=== PATIENT | male | born 1935 | race Caucasian/White ===

== ENCOUNTER 2019-02-15 03:13 | Inpatient (IN) | payer MEDICARE, MEDICAID ==
[~2019-02-15] VITALS: Ht 167.6 cm; Wt 75.3 kg
[2019-02-15] VITALS (59 sets, daily range): BP systolic 81–135; BP diastolic 44–83
[2019-02-15] MEDS ORDERED: LEVOFLOXACIN 750MG PREMIX 150 ML IV ONE (03:45)
[2019-02-15] MEDS ORDERED: SODIUM CHLORIDE 0.9% 1000ML BAG (SEPSIS BOLUS) IV ONE (03:45)
[2019-02-15 04:07] LABS: CHLORIDE 105 mEq/L (98-107)
[2019-02-15 04:08] LABS: BASOPHILS % 0.5 % (0.0-2.0); EOSINOPHILS % 0.2 % (0.0-5.0); HEMATOCRIT. 36.3 % (42.0-52.0); HEMOGLOBIN. 12.2 g/dL (14.0-18.0); LYMPHOCYTES % 9.6 % (20.0-50.0); MEAN CORPUSCULAR VOLUME 92.5 fL (80.0-94.0); MEAN PLATELET VOLUME 10.5 fl (7.4-10.4); MONOCYTES % 7.8 % (2.0-8.0); NEUTROPHILS % 81.9 % (40.0-76.0); PLATELET 86 x1000/uL (130-400); RED BLOOD CELL COUNT 3.93 mill/uL (4.7-6.1); RED CELL DISTRIBUTION WIDTH 18.2 % (11.6-14.6)
[2019-02-15 04:11] LABS: INR 1.2; PROTHROMBIN TIME 12.4 sec (9.6-11.0)
[2019-02-15] MEDS ORDERED: DEXTROSE 50% WATER 50ML SYRINGE IV ONE ×2 (06:28→06:30)
[2019-02-15] MEDS ORDERED: IOHEXOL-350 100 ML BOTTLE ONE (07:26)
[2019-02-15] MEDS ORDERED: IPRATROPIUM/ALBUTEROL 0.5-3(2.5)MG/3ML NEB HHN PRN (08:00)
[2019-02-15] MEDS ORDERED: ACETAMINOPHEN 325MG TABLET PO PRN (08:00)
[2019-02-15] MEDS ORDERED: AZITHROMYCIN 500 MG in DEXT 5% WATER 250 ML IV SCH (08:00)
[2019-02-15] MEDS ORDERED: NITROGLYCERIN 0.4MG TABLET SL SL PRN (08:00)
[2019-02-15] MEDS ORDERED: DEXTROSE 50% WATER 50ML SYRINGE IV PRN (08:00)
[2019-02-15] MEDS ORDERED: CLONIDINE 0.1MG TABLET PO PRN (08:00)
[2019-02-15] MEDS ORDERED: MAGNESIUM/ALUMINUM HYDROXIDE/SIMETHICONE 30ML UDC PO PRN (08:00)
[2019-02-15] MEDS: INSULIN LISPRO 100 UNITS/ML SUBCUT SCH ×5 (08:20→20:47)
[2019-02-15 08:26] LABS: CLARITY URINE CLEAR (CLEAR); COLOR URINE YELLOW (YELLOW); KETONES URINE NEGATIVE (NEGATIVE); LEUKOCYTE ESTERASE URINE NEGATIVE (NEGATIVE); NITRITE URINE NEGATIVE (NEGATIVE); OCCULT BLOOD URINE NEGATIVE (NEGATIVE); PH URINE 7.5 (4.5-8.0); PROTEIN URINE NEGATIVE (NEGATIVE); SPECIFIC GRAVITY URINE 1.019 (1.005-1.030)
[2019-02-15] MEDS ORDERED: CEFTRIAXONE 1 G PREMIX 50 ML IV SCH (09:00)
[2019-02-15] MEDS ORDERED: BLOOD SUGAR DIAGNOSTIC STRIP TEST SCH (09:00)
[2019-02-15] MEDS ORDERED: LIDOCAINE HCL 1% 20ML VIAL (Pyxis) INJ ONE (09:51)
[2019-02-15] MEDS ORDERED: MEMA28CA MT (09:56)
[2019-02-15] MEDS ORDERED: ISON300T19 MT (09:56)
[2019-02-15] MEDS ORDERED: PREG150C MT (09:56)
[2019-02-15] MEDS ORDERED: OXYB5TAB11 MT (09:56)
[2019-02-15] MEDS ORDERED: METF-416 MT (09:56)
[2019-02-15] MEDS ORDERED: ATRO10DR OP (09:56)
[2019-02-15] MEDS ORDERED: ATOR20TA65 PO (09:56)
[2019-02-15] MEDS ORDERED: OSELTAMIVIR 75MG CAPSULE PO SCH (10:15)
[2019-02-15] MEDS ORDERED: NOREPINEPHRINE 4 MG in DEXT 5% WATER 246 ML IV PRN (10:15)
[2019-02-15] MEDS ORDERED: OSELTAMIVIR 30MG CAPSULE PO SCH (10:26)
[2019-02-15] MEDS: GUAIFENESIN 200MG/10ML SUGAR FREE UDC PO PRN ×2 (10:57→20:41)
[2019-02-15] MEDS: GUAIFENESIN/DM 600MG/30MG ER TAB 12HR PO SCH ×2 (10:57→20:41)
[2019-02-15] MEDS: FAMOTIDINE 20MG TABLET PO SCH ×2 (10:57→20:41)
[2019-02-15] MEDS: ASCORBIC ACID 500 MG TABLET PO SCH ×2 (10:57→20:41)
[2019-02-15] MEDS: ENOXAPARIN 40MG/0.4ML SYR SUBCUT SCH (10:58)
[2019-02-15] MEDS ORDERED: OSELTAMIVIR 30MG CAPSULE PO NR (11:15)
[2019-02-15] MEDS: ZINC SULFATE 220 MG ( 50 ) CAPSULE PO SCH (12:01)
[2019-02-15] MEDS: AZITHROMYCIN 500 MG in DEXT 5% WATER 250 ML IV SCH (12:01)
[2019-02-15] MEDS: CEFTRIAXONE 1 G PREMIX 50 ML IV SCH (12:01)
[2019-02-15] MEDS: BLOOD SUGAR DIAGNOSTIC STRIP TEST SCH ×3 (12:36→20:45)
[2019-02-15] MEDS: KETOROLAC 15MG/ML VIAL IV PRN ×2 (14:24→22:46)
[2019-02-15 17:38] LABS: CREATINE KINASE MB FRACTION 3.3 ng/mL (0.5-3.6)
[2019-02-15] MEDS: OSELTAMIVIR 75MG CAPSULE PO SCH (20:44)
[2019-02-15] MEDS: ZOLPIDEM TARTRATE 5MG TABLET PO PRN (22:49)
[2019-02-15 23:19] LABS: CREATINE KINASE MB FRACTION 3.8 ng/mL (0.5-3.6)
[2019-02-16] VITALS (66 sets, daily range): BP systolic 78–162; BP diastolic 49–87
[2019-02-16] MEDS: GUAIFENESIN 200MG/10ML SUGAR FREE UDC PO PRN ×2 (02:03→20:23)
[2019-02-16 05:43] LABS: BASOPHILS % 0.2 % (0.0-2.0); EOSINOPHILS % 0.3 % (0.0-5.0); HEMATOCRIT. 34.1 % (42.0-52.0); HEMOGLOBIN. 11.7 g/dL (14.0-18.0); LYMPHOCYTES % 10.1 % (20.0-50.0); MEAN CORPUSCULAR HEMOGLOBIN 31.4 pg (28.0-32.0); MEAN CORPUSCULAR VOLUME 91.9 fL (80.0-94.0); MEAN PLATELET VOLUME 11.1 fl (7.4-10.4); NEUTROPHILS % 78.4 % (40.0-76.0); PLATELET 83 x1000/uL (130-400); RED BLOOD CELL COUNT 3.71 mill/uL (4.7-6.1); RED CELL DISTRIBUTION WIDTH 18.5 % (11.6-14.6)
[2019-02-16 05:50] LABS: CHLORIDE 106 mEq/L (98-107)
[2019-02-16] MEDS: INSULIN LISPRO 100 UNITS/ML SUBCUT SCH ×4 (08:20→20:53)
[2019-02-16] MEDS: ZINC SULFATE 220 MG ( 50 ) CAPSULE PO SCH (08:27)
[2019-02-16] MEDS: FAMOTIDINE 20MG TABLET PO SCH ×2 (08:27→20:52)
[2019-02-16] MEDS: GUAIFENESIN/DM 600MG/30MG ER TAB 12HR PO SCH ×2 (08:27→19:40)
[2019-02-16] MEDS: OSELTAMIVIR 75MG CAPSULE PO SCH ×2 (08:27→20:52)
[2019-02-16] MEDS: ENOXAPARIN 40MG/0.4ML SYR SUBCUT SCH (08:27)
[2019-02-16] MEDS: ASCORBIC ACID 500 MG TABLET PO SCH ×2 (08:27→20:52)
[2019-02-16] MEDS: BLOOD SUGAR DIAGNOSTIC STRIP TEST SCH ×4 (08:28→20:52)
[2019-02-16] MEDS: KETOROLAC 15MG/ML VIAL IV PRN ×3 (09:44→19:40)
[2019-02-16] MEDS: ONDANSETRON HCL 4MG/2ML INJ IV PRN (09:44)
[2019-02-16] MEDS: CEFTRIAXONE 1 G PREMIX 50 ML IV SCH (11:22)
[2019-02-16] MEDS: AZITHROMYCIN 500 MG in DEXT 5% WATER 250 ML IV SCH (11:22)
[2019-02-16] MEDS: ZOLPIDEM TARTRATE 5MG TABLET PO PRN (20:52)
[2019-02-17] VITALS (23 sets, daily range): BP systolic 109–139; BP diastolic 67–90
[2019-02-17] MEDS: GUAIFENESIN 200MG/10ML SUGAR FREE UDC PO PRN ×2 (02:23→07:43)
[2019-02-17] MEDS: DOCUSATE SODIUM 100MG CAPSULE PO PRN ×2 (05:01→08:58)
[2019-02-17 05:45] LABS: BASOPHILS % 0.2 % (0.0-2.0); EOSINOPHILS % 0.4 % (0.0-5.0); HEMATOCRIT. 32.9 % (42.0-52.0); HEMOGLOBIN. 11.1 g/dL (14.0-18.0); MEAN CORPUSCULAR HEMOGLOBIN 31.1 pg (28.0-32.0); MEAN PLATELET VOLUME 10.9 fl (7.4-10.4); MONOCYTES % 11.9 % (2.0-8.0); NEUTROPHILS % 70.5 % (40.0-76.0); PLATELET 84 x1000/uL (130-400); RED BLOOD CELL COUNT 3.57 mill/uL (4.7-6.1); RED CELL DISTRIBUTION WIDTH 18.6 % (11.6-14.6)
[2019-02-17 05:49] LABS: CHLORIDE 108 mEq/L (98-107)
[2019-02-17] MEDS: KETOROLAC 15MG/ML VIAL IV PRN ×3 (07:43→17:56)
[2019-02-17] MEDS: GUAIFENESIN/DM 600MG/30MG ER TAB 12HR PO SCH (07:43)
[2019-02-17] MEDS: BLOOD SUGAR DIAGNOSTIC STRIP TEST SCH ×3 (07:50→17:13)
[2019-02-17] MEDS: INSULIN LISPRO 100 UNITS/ML SUBCUT SCH ×3 (08:20→17:19)
[2019-02-17] MEDS ORDERED: TAMS-11 PO (08:53)
[2019-02-17] MEDS: ASCORBIC ACID 500 MG TABLET PO SCH (08:58)
[2019-02-17] MEDS: ZINC SULFATE 220 MG ( 50 ) CAPSULE PO SCH (08:58)
[2019-02-17] MEDS: ONDANSETRON HCL 4MG/2ML INJ IV PRN (08:58)
[2019-02-17] MEDS: FAMOTIDINE 20MG TABLET PO SCH (08:58)
[2019-02-17] MEDS: OSELTAMIVIR 75MG CAPSULE PO SCH (08:58)
[2019-02-17] MEDS: ENOXAPARIN 40MG/0.4ML SYR SUBCUT SCH (09:00)
[2019-02-17] MEDS: CEFTRIAXONE 1 G PREMIX 50 ML IV SCH (11:51)
[2019-02-17] MEDS: AZITHROMYCIN 500 MG in DEXT 5% WATER 250 ML IV SCH (13:13)
== END 2019-02-17 20:10 | disposition home or self-care (01) | DRG 193 ==
LOC: ER 03:13 → EDBD 03:13 → EDBEDREQSVC 06:13 → EDBEDREQTM 06:13 → EDBEDREQ 06:13 → ENRESERV 07:02 → CANRESERV 07:02 → EDRESERV 07:02 → SUPCPDRO 07:32 → CVICU 07:54 → EDBEDREQSVC 07:55 → EDBEDREQTM 07:56 → EDBEDREQ 07:56 → ENRESERV 08:13 → 7WST 02-17 10:32
PROVIDERS: ADMIT Internal Medicine; ATTEND Internal Medicine
PROC: 05HY33Z Insertion of Infusion Device into Upper Vein, Percutaneous Approach (ICD-10-PCS; principal; 2019-02-15)
PROC: B54MZZA Ultrasonography of Right Upper Extremity Veins, Guidance (ICD-10-PCS; 2019-02-15)
DX: J18.8 Other pneumonia, unspecified organism (principal); R65.11 Systemic inflammatory response syndrome (SIRS) of non-infectious origin with acute organ dysfunction; E44.1 Mild protein-calorie malnutrition; E11.65 Type 2 diabetes mellitus with hyperglycemia; D63.8 Anemia in other chronic diseases classified elsewhere; E66.9 Obesity, unspecified; I10 Essential (primary) hypertension; I95.9 Hypotension, unspecified; Z68.26 Body mass index [BMI] 26.0-26.9, adult
CPT/HCPCS: 36415; 71045; 71275; 76937; 80048; 80061; 81003; 82550; 82553; 82962; 83036; 83605; 83880; 84145; 84484; 87804; 93005; 93306; 93970; 94640; 97162; 99291; C1725; J0456; J0696; J1650; J1815; J1885; J1956; J2405; J3490; J7030; J7040; J7060; J7620; Q9967; A4315

== ENCOUNTER 2019-06-30 04:55 | Inpatient (IN) | payer MEDICARE, MEDICAID ==
[2019-06-30] VITALS (7 sets, daily range): BP systolic 112–177; BP diastolic 61–99
[~2019-06-30] VITALS: Ht 167.6 cm; Wt 84.4 kg
[~2019-06-30 04:55] MED LIST: ATOR20TA65 PO; ATRO10DR OP; ISON300T19 MT; MEMA28CA MT; METF-416 MT; OXYB5TAB17 MT; PREG150C MT; TAMS-11 PO
[2019-06-30] MEDS ORDERED: SODIUM CHLORIDE 0.9% 1,000 ML IV ONE (05:14)
[2019-06-30] MEDS ORDERED: PIPERACILLIN/TAZ 3.375G PREMIX 50 ML IV ONE (05:15)
[2019-06-30] MEDS ORDERED: SODIUM CHLORIDE 0.9% 1000ML BAG (SEPSIS BOLUS) IV ONE (05:15)
[2019-06-30] MEDS ORDERED: VANCOMYCIN 1 G PREMIX 200 ML IV ONE (05:15)
[2019-06-30] MEDS ORDERED: ACETAMINOPHEN 325MG TABLET PO ONE (05:15)
[2019-06-30 05:38] LABS: BASOPHILS % 0.2 % (0.0-2.0); EOSINOPHILS % 0.1 % (0.0-5.0); HEMATOCRIT. 36.1 % (42.0-52.0); HEMOGLOBIN. 12.3 g/dL (14.0-18.0); LYMPHOCYTES % 7.3 % (20.0-50.0); MEAN CORPUSCULAR HEMOGLOBIN 29.8 pg (28.0-32.0); MEAN CORPUSCULAR VOLUME 87.8 fL (80.0-94.0); MEAN PLATELET VOLUME 9.4 fl (7.4-10.4); MONOCYTES % 12.3 % (2.0-8.0); NEUTROPHILS % 80.1 % (40.0-76.0); PLATELET 164 x1000/uL (130-400); RED BLOOD CELL COUNT 4.11 mill/uL (4.7-6.1); RED CELL DISTRIBUTION WIDTH 18.2 % (11.6-14.6)
[2019-06-30 05:38] LABS: CLARITY URINE CLEAR (CLEAR); COLOR URINE YELLOW (YELLOW); KETONES URINE 3+ (NEGATIVE); LEUKOCYTE ESTERASE URINE NEGATIVE (NEGATIVE); NITRITE URINE NEGATIVE (NEGATIVE); OCCULT BLOOD URINE 2+ (NEGATIVE); PH URINE 6.5 (4.5-8.0); PROTEIN URINE 2+ (NEGATIVE); SPECIFIC GRAVITY URINE 1.019 (1.005-1.030)
[2019-06-30 05:45] LABS: CHLORIDE 105 mEq/L (98-107)
[2019-06-30] MEDS: SODIUM CHLORIDE 0.9% 1,000 ML IV SCH ×2 (09:13→21:13)
[2019-06-30] MEDS ORDERED: IPRATROPIUM/ALBUTEROL 0.5-3(2.5)MG/3ML NEB HHN PRN (09:15)
[2019-06-30] MEDS ORDERED: ONDANSETRON HCL 4MG/2ML INJ IV PRN (09:15)
[2019-06-30] MEDS ORDERED: DIPHENHYDRAMINE 50MG/ML VIAL IV PRN (09:15)
[2019-06-30 09:37] LABS: PHOSPHORUS 1.5 mg/dL (2.5-4.9)
[2019-06-30] MEDS: CLONIDINE 0.1MG TABLET PO PRN ×2 (10:18→12:45)
[2019-06-30] MEDS ORDERED: DEXTROSE 50% WATER 50ML SYRINGE IV PRN (12:00)
[2019-06-30] MEDS: BLOOD SUGAR DIAGNOSTIC STRIP TEST SCH ×3 (12:19→21:13)
[2019-06-30] MEDS ORDERED: PIPERACILLIN/TAZOBACTAM 3.375 G in DEXT 5% WATER 100 ML IV SCH (12:30)
[2019-06-30] MEDS: HYDROCODONE/ACETAMINOPHEN 5/325MG TABLET PO PRN ×2 (12:43→23:08)
[2019-06-30] MEDS: INSULIN LISPRO 100 UNITS/ML SUBCUT SCH ×3 (12:49→22:57)
[2019-06-30] MEDS ORDERED: CEFTRIAXONE 2 G PREMIX 50 ML IV SCH (15:00)
[2019-06-30] MEDS: LACTOBACILLUS GG CAPSULE PO SCH (17:50)
[2019-06-30] MEDS: METRONIDAZOLE 500 MG PREMIX 100 ML IV SCH ×2 (17:51→21:13)
[2019-06-30] MEDS: ACETAMINOPHEN 325MG TABLET PO PRN (17:51)
[2019-06-30] MEDS: VANCOMYCIN 750 MG PREMIX 150 ML IV SCH (17:52)
[2019-06-30 23:31] LABS: CREATINE KINASE MB FRACTION 2.1 ng/mL (0.5-3.6)
[2019-07-01] VITALS (11 sets, daily range): BP systolic 120–156; BP diastolic 70–93
[2019-07-01] MEDS: VANCOMYCIN 750 MG PREMIX 150 ML IV SCH ×2 (05:24→18:40)
[2019-07-01] MEDS: METRONIDAZOLE 500 MG PREMIX 100 ML IV SCH ×3 (05:25→20:47)
[2019-07-01] MEDS: ACETAMINOPHEN 325MG TABLET PO PRN ×2 (05:49→20:47)
[2019-07-01 07:07] LABS: CHLORIDE 107 mEq/L (98-107)
[2019-07-01 07:18] LABS: LDL CHOLESTEROL 52 mg/dL (5-100)
[2019-07-01 07:20] LABS: HDL CHOLESTEROL 12 mg/dL (40-59)
[2019-07-01 07:22] LABS: BASOPHILS % 0.3 % (0.0-2.0); EOSINOPHILS % 0.1 % (0.0-5.0); HEMATOCRIT. 34.6 % (42.0-52.0); HEMOGLOBIN. 11.6 g/dL (14.0-18.0); LYMPHOCYTES % 7.8 % (20.0-50.0); MEAN CORPUSCULAR HEMOGLOBIN 29.6 pg (28.0-32.0); MEAN CORPUSCULAR VOLUME 87.9 fL (80.0-94.0); MEAN PLATELET VOLUME 9.4 fl (7.4-10.4); MONOCYTES % 11.6 % (2.0-8.0); NEUTROPHILS % 80.2 % (40.0-76.0); PLATELET 166 x1000/uL (130-400); RED BLOOD CELL COUNT 3.94 mill/uL (4.7-6.1); RED CELL DISTRIBUTION WIDTH 18.6 % (11.6-14.6)
[2019-07-01] MEDS: BLOOD SUGAR DIAGNOSTIC STRIP TEST SCH ×4 (08:02→20:18)
[2019-07-01] MEDS: INSULIN LISPRO 100 UNITS/ML SUBCUT SCH ×4 (08:04→20:47)
[2019-07-01] MEDS: LACTOBACILLUS GG CAPSULE PO SCH (08:05)
[2019-07-01] MEDS: ENOXAPARIN 40MG/0.4ML SYR SUBCUT SCH (10:54)
[2019-07-01] MEDS: HYDROCODONE/ACETAMINOPHEN 5/325MG TABLET PO PRN (10:55)
[2019-07-01] MEDS ORDERED: POTASSIUM CHLORIDE INJ 40 MEQ in DEXT 5% WATER 250 ML IV NR (11:00)
[2019-07-01 14:40] LABS: PHOSPHORUS 1.4 mg/dL (2.5-4.9)
[2019-07-01] MEDS: CEFTRIAXONE 2 G in DEXTROSE 5% WATER 50 ML IV SCH (17:34)
[2019-07-01] MEDS: SODIUM CHLORIDE 0.9% 1,000 ML IV SCH (20:48)
[2019-07-02] VITALS (15 sets, daily range): BP systolic 98–173; BP diastolic 63–121
[2019-07-02] MEDS: SODIUM CHLORIDE 0.9% 1,000 ML IV SCH ×3 (01:48→17:14)
[2019-07-02] MEDS: HYDROCODONE/ACETAMINOPHEN 5/325MG TABLET PO PRN ×3 (02:33→20:00)
[2019-07-02] MEDS: METRONIDAZOLE 500 MG PREMIX 100 ML IV SCH ×3 (05:18→21:45)
[2019-07-02] MEDS: VANCOMYCIN 750 MG PREMIX 150 ML IV SCH ×2 (05:18→17:13)
[2019-07-02 07:22] LABS: HEMATOCRIT. 33.5 % (42.0-52.0); HEMOGLOBIN. 11.4 g/dL (14.0-18.0); MEAN CORPUSCULAR HEMOGLOBIN 29.7 pg (28.0-32.0); MEAN CORPUSCULAR VOLUME 87.7 fL (80.0-94.0); MEAN PLATELET VOLUME 9.5 fl (7.4-10.4); PLATELET 213 x1000/uL (130-400); RED BLOOD CELL COUNT 3.82 mill/uL (4.7-6.1); RED CELL DISTRIBUTION WIDTH 18.9 % (11.6-14.6)
[2019-07-02] MEDS: BLOOD SUGAR DIAGNOSTIC STRIP TEST SCH ×4 (07:30→21:46)
[2019-07-02 07:37] LABS: CHLORIDE 106 mEq/L (98-107)
[2019-07-02] MEDS: LACTOBACILLUS GG CAPSULE PO SCH (08:51)
[2019-07-02] MEDS: INSULIN LISPRO 100 UNITS/ML SUBCUT SCH ×4 (08:51→21:49)
[2019-07-02] MEDS: ENOXAPARIN 40MG/0.4ML SYR SUBCUT SCH (08:51)
[2019-07-02 11:48] LABS: PLATELET ESTIMATE NORMAL
[2019-07-02] MEDS: CEFTRIAXONE 2 G in DEXTROSE 5% WATER 50 ML IV SCH (14:47)
[2019-07-03] VITALS (21 sets, daily range): BP systolic 111–191; BP diastolic 61–150
[2019-07-03] MEDS: HYDROCODONE/ACETAMINOPHEN 5/325MG TABLET PO PRN ×3 (04:01→21:23)
[2019-07-03] MEDS: METRONIDAZOLE 500 MG PREMIX 100 ML IV SCH ×3 (06:17→23:12)
[2019-07-03] MEDS: SODIUM CHLORIDE 0.9% 1,000 ML IV SCH (06:18)
[2019-07-03] MEDS: INSULIN LISPRO 100 UNITS/ML SUBCUT SCH ×4 (06:40→21:22)
[2019-07-03] MEDS: BLOOD SUGAR DIAGNOSTIC STRIP TEST SCH ×4 (06:41→21:14)
[2019-07-03 07:59] LABS: HEMATOCRIT. 32.8 % (42.0-52.0); HEMOGLOBIN. 11.3 g/dL (14.0-18.0); MEAN CORPUSCULAR HEMOGLOBIN 30.2 pg (28.0-32.0); MEAN CORPUSCULAR VOLUME 87.3 fL (80.0-94.0); MEAN PLATELET VOLUME 8.9 fl (7.4-10.4); PLATELET 286 x1000/uL (130-400); RED BLOOD CELL COUNT 3.76 mill/uL (4.7-6.1); RED CELL DISTRIBUTION WIDTH 19.2 % (11.6-14.6)
[2019-07-03] MEDS: ENOXAPARIN 40MG/0.4ML SYR SUBCUT SCH (09:00)
[2019-07-03 09:14] LABS: CHLORIDE 107 mEq/L (98-107)
[2019-07-03] MEDS: LACTOBACILLUS GG CAPSULE PO SCH (09:23)
[2019-07-03 11:00] LABS: PLATELET ESTIMATE NORMAL
[2019-07-03] MEDS: SODIUM CHLORIDE 0.45% 1,000 ML IV SCH ×2 (11:24→22:57)
[2019-07-03] MEDS ORDERED: SODIUM CHLORIDE 0.9% 1000ML BAG (SEPSIS BOLUS) IV ONE (12:00)
[2019-07-03] MEDS: CLONIDINE 0.1MG TABLET PO PRN (13:32)
[2019-07-03 14:16] LABS: PHOSPHORUS 2.1 mg/dL (2.5-4.9)
[2019-07-03 15:39] LABS: INR 1.2; PROTHROMBIN TIME 12.7 sec (9.6-11.0)
[2019-07-03] MEDS: CEFTRIAXONE 2 G in DEXTROSE 5% WATER 50 ML IV SCH (16:11)
[2019-07-03] MEDS ORDERED: MAGNESIUM 4 G PREMIX 100 ML IV NR (17:30)
[2019-07-03] MEDS ORDERED: DIGOXIN 500MCG/2ML AMP IV ONE ×2 (17:45→20:30)
[2019-07-03] MEDS ORDERED: DILTIAZEM HCL 5MG/ML 5ML VIAL IV ONE (17:45)
[2019-07-03] MEDS ORDERED: POTASSIUM CHLORIDE 20MEQ TABLET SR PO NR (18:00)
[2019-07-03] MEDS ORDERED: SODIUM PHOS,M-BASIC-D-BASIC 10 MM in DEXT 5% WATER 246.6667 ML IV NR (18:00)
[2019-07-03] MEDS ORDERED: DIGOXIN 500MCG/2ML AMP IV NR (19:30)
[2019-07-03] MEDS: DILTIAZEM HCL 90MG TABLET PO SCH (21:13)
[2019-07-03] MEDS: TAMSULOSIN HCL 0.4MG SR CAPSULE PO SCH (21:14)
[2019-07-03] MEDS: DILTIAZEM HCL 125 MG in DEXT 5% WATER 100 ML IV SCH (23:06)
[2019-07-04] VITALS (92 sets, daily range): BP systolic 0–189; BP diastolic 0–87
[2019-07-04] MEDS ORDERED: ALBUMIN HUMAN 25GM/500ML (5%) IV PRN (01:00)
[2019-07-04] MEDS ORDERED: AMIODARONE HCL 150 MG in DEXT 5% WATER 100 ML IV SCH (01:30)
[2019-07-04] MEDS: AMIODARONE HCL 900 MG in DEXT 5% WATER 482 ML IV PRN ×2 (04:29→21:27)
[2019-07-04 05:37] LABS: HEMATOCRIT. 35.5 % (42.0-52.0); MEAN CORPUSCULAR VOLUME 88.6 fL (80.0-94.0); MEAN PLATELET VOLUME 9.2 fl (7.4-10.4); PLATELET 364 x1000/uL (130-400); RED CELL DISTRIBUTION WIDTH 19.2 % (11.6-14.6)
[2019-07-04] MEDS: BLOOD SUGAR DIAGNOSTIC STRIP TEST SCH ×4 (05:48→21:11)
[2019-07-04] MEDS: METRONIDAZOLE 500 MG PREMIX 100 ML IV SCH ×3 (05:56→21:28)
[2019-07-04] MEDS: INSULIN LISPRO 100 UNITS/ML SUBCUT SCH ×4 (05:57→21:29)
[2019-07-04] MEDS: DILTIAZEM HCL 90MG TABLET PO SCH ×4 (05:58→18:00)
[2019-07-04] MEDS: SODIUM CHLORIDE 0.45% 1,000 ML IV SCH ×2 (05:59→14:32)
[2019-07-04 06:22] LABS: CHLORIDE 103 mEq/L (98-107)
[2019-07-04 06:49] LABS: CREATINE KINASE MB FRACTION 5.4 ng/mL (0.5-3.6)
[2019-07-04] MEDS ORDERED: METOPROLOL TARTRATE 25MG TABLET PO NR (09:30)
[2019-07-04] MEDS: LACTOBACILLUS GG CAPSULE PO SCH (10:37)
[2019-07-04] MEDS: TAMSULOSIN HCL 0.4MG SR CAPSULE PO SCH ×2 (10:38→17:00)
[2019-07-04 11:09] LABS: ATYPICAL LYMPHOCYTES 2; NUCLEATED RED BLOOD CELLS 1 /100 WBC; PLATELET ESTIMATE NORMAL
[2019-07-04] MEDS: DILTIAZEM HCL 125 MG in DEXT 5% WATER 100 ML IV SCH (11:30)
[2019-07-04 12:06] LABS: INR 1.1; PARTIAL THROMBOPLASTIN TIME 31.7 sec (23.4-31.0); PROTHROMBIN TIME 12.3 sec (9.6-11.0)
[2019-07-04] MEDS ORDERED: FENTANYL CITRATE/PF 50MCG/ML 2ML VIAL ONE (12:13)
[2019-07-04] MEDS ORDERED: PROPOFOL 200MG/20ML VIAL IV ONE (12:14)
[2019-07-04] MEDS ORDERED: PHENYLEPHRINE HCL 10 MG/ML 1ML (IV VIAL) IV ONE (12:15)
[2019-07-04] MEDS ORDERED: SUCCINYLCHOLINE CHLORIDE 200MG/10ML IV ONE (12:18)
[2019-07-04] MEDS ORDERED: ROCURONIUM BROMIDE 10MG/ML VIAL 5ML IV ONE (12:19)
[2019-07-04] MEDS ORDERED: EPHEDRINE SULFATE 50MG/ML VIAL ONE (12:21)
[2019-07-04] MEDS ORDERED: SKIN ADHESIVE 0.7 GM EA TOP ONE (12:46)
[2019-07-04] MEDS ORDERED: LIDOCAINE HCL 1% 20ML VIAL (Pyxis) INJ ONE (12:46)
[2019-07-04] MEDS ORDERED: BUPIVACAINE HCL 0.5% (5MG/ML) 50ML ONE (12:47)
[2019-07-04] MEDS ORDERED: MIDAZOLAM HCL 2 MG/2 ML VIAL ONE (12:50)
[2019-07-04] MEDS: METOPROLOL TARTRATE 25MG TABLET PO SCH ×2 (14:00→21:28)
[2019-07-04] MEDS ORDERED: BACITRACIN 50,000 UNITS/VIAL ONE (14:03)
[2019-07-04] MEDS ORDERED: ALBUTEROL 90MCG/PUFF 17GM INHALER INH ONE (14:10)
[2019-07-04] MEDS ORDERED: MEPERIDINE HCL/PF 25MG/ML CPJ IV PRN (15:00)
[2019-07-04] MEDS: CEFTRIAXONE 2 G in DEXTROSE 5% WATER 50 ML IV SCH (15:00)
[2019-07-04] MEDS ORDERED: ONDANSETRON HCL 4MG/2ML INJ IV PRN (15:00)
[2019-07-04] MEDS ORDERED: LABETALOL 5MG/ML SYR 20 MG/4 ML SYRINGE IV PRN (15:00)
[2019-07-04] MEDS ORDERED: HYDROMORPHONE HCL/PF 2MG/ML CPJ IV PRN (15:00)
[2019-07-04 15:46] LABS: BG BASE EXCESS -8.9 mmol/L (-2.0-2.0); BG CARBOXYHEMOGLOBIN 0.3 % (0.5-1.5); BG DEOXYHEMOGLOBIN 8.6 % (0.0-5.0); BG FRACTION INSPIRED OXYGEN 65; BG HCO3 ACT 19.6 mmol/L (22.0-26.0); BG METHEMOGLOBIN 0.6 % (0.0-1.5); BG OXYGEN SATURATION 91.3 % (92.0-98.5); BG OXYHEMOGLOBIN 90.5 % (94.0-97.0); BG PCO2 53.7 mmHg (35.0-45.0); BG PH 7.181 (7.350-7.450); BG PO2 75.2 mmHg (75.0-100.0); BG SAMPLE SITE A-LINE; BG TIDAL VOLUME(mL) 500 mL; BG TOTAL HEMOGLOBIN 12.4 g/dL (12.0-18.0); BG VENT MODE VENT - A/C; BG VENT RATE 12 set
[2019-07-04 16:43] LABS: BG BASE EXCESS -10.2 mmol/L (-2.0-2.0); BG CARBOXYHEMOGLOBIN 0.1 % (0.5-1.5); BG DEOXYHEMOGLOBIN 14.4 % (0.0-5.0); BG FRACTION INSPIRED OXYGEN 100; BG HCO3 ACT 17.1 mmol/L (22.0-26.0); BG METHEMOGLOBIN 0.7 % (0.0-1.5); BG OXYGEN SATURATION 85.5 % (92.0-98.5); BG OXYHEMOGLOBIN 84.8 % (94.0-97.0); BG PCO2 43.2 mmHg (35.0-45.0); BG PH 7.215 (7.350-7.450); BG PO2 60.1 mmHg (75.0-100.0); BG SAMPLE SITE A-LINE; BG TIDAL VOLUME(mL) 550 mL; BG TOTAL HEMOGLOBIN 12.1 g/dL (12.0-18.0); BG VENT MODE VENT - A/C; BG VENT RATE 16 set
[2019-07-05] VITALS (88 sets, daily range): BP systolic 92–184; BP diastolic 42–117
[2019-07-05] MEDS: DILTIAZEM HCL 90MG TABLET PO SCH ×5 (00:31→23:51)
[2019-07-05] MEDS: MORPHINE SULFATE 2 MG/ML CPJ (NOT FOR IM USE) IV PRN (00:31)
[2019-07-05] MEDS: SODIUM CHLORIDE 0.45% 1,000 ML IV SCH ×2 (00:32→09:38)
[2019-07-05] MEDS: PROPOFOL 10MG/ML 100ML 100 ML IV PRN ×4 (01:52→20:44)
[2019-07-05 05:40] LABS: HEMATOCRIT. 33.7 % (42.0-52.0); HEMOGLOBIN. 11.3 g/dL (14.0-18.0); MEAN CORPUSCULAR HEMOGLOBIN 29.5 pg (28.0-32.0); MEAN CORPUSCULAR VOLUME 87.8 fL (80.0-94.0); MEAN PLATELET VOLUME 8.9 fl (7.4-10.4); PLATELET 464 x1000/uL (130-400); RED BLOOD CELL COUNT 3.84 mill/uL (4.7-6.1); RED CELL DISTRIBUTION WIDTH 19.4 % (11.6-14.6)
[2019-07-05 06:11] LABS: CHLORIDE 101 mEq/L (98-107)
[2019-07-05] MEDS: BLOOD SUGAR DIAGNOSTIC STRIP TEST SCH ×4 (06:11→23:52)
[2019-07-05] MEDS: METRONIDAZOLE 500 MG PREMIX 100 ML IV SCH ×3 (06:11→22:34)
[2019-07-05] MEDS: INSULIN LISPRO 100 UNITS/ML SUBCUT SCH ×3 (06:12→23:52)
[2019-07-05] MEDS: METOPROLOL TARTRATE 25MG TABLET PO SCH ×3 (06:13→22:34)
[2019-07-05] MEDS: IPRATROPIUM/ALBUTEROL 0.5-3(2.5)MG/3ML NEB HHN SCH ×3 (07:36→20:34)
[2019-07-05] MEDS ORDERED: SODIUM BICARBONATE 8.4% 1 MEQ/ML 50ML SYR IV NR (07:45)
[2019-07-05] MEDS ORDERED: LIDOCAINE HCL 1% 20ML VIAL (Pyxis) INJ ONE (08:29)
[2019-07-05] MEDS: TAMSULOSIN HCL 0.4MG SR CAPSULE PO SCH ×2 (08:34→17:43)
[2019-07-05] MEDS: LACTOBACILLUS GG CAPSULE PO SCH (08:42)
[2019-07-05 09:23] LABS: BG CARBOXYHEMOGLOBIN 0.3 % (0.5-1.5); BG DEOXYHEMOGLOBIN 1.2 % (0.0-5.0); BG FRACTION INSPIRED OXYGEN 100; BG HCO3 ACT 17.5 mmol/L (22.0-26.0); BG METHEMOGLOBIN 0.1 % (0.0-1.5); BG OXYGEN SATURATION 98.8 % (92.0-98.5); BG OXYHEMOGLOBIN 98.4 % (94.0-97.0); BG PCO2 28.3 mmHg (35.0-45.0); BG PH 7.408 (7.350-7.450); BG PO2 150.7 mmHg (75.0-100.0); BG SAMPLE SITE A-LINE; BG TIDAL VOLUME(mL) 550 mL; BG TOTAL HEMOGLOBIN 11.8 g/dL (12.0-18.0); BG VENT MODE VENT - A/C; BG VENT RATE 20 set
[2019-07-05] MEDS: INSULIN GLARGINE UD 100 UNITS/ML SYR SUBCUT SCH ×2 (09:38→22:34)
[2019-07-05] MEDS ORDERED: HEPARIN 100 UNITS/1 ML VIAL IVF PRN (10:45)
[2019-07-05] MEDS ORDERED: INSULIN LISPRO 100 UNITS/ML SUBCUT SCH (11:15)
[2019-07-05] MEDS: DILTIAZEM HCL 125 MG in DEXT 5% WATER 100 ML IV SCH ×3 (12:06)
[2019-07-05 13:19] LABS: PLATELET ESTIMATE INCREASED
[2019-07-05] MEDS: SPIRONOLACTONE 25MG TABLET NG SCH (14:42)
[2019-07-05] MEDS: SODIUM CHLORIDE 0.9% 1,000 ML IV SCH ×2 (14:43→22:37)
[2019-07-05] MEDS: FUROSEMIDE 40MG/4ML VIAL IVP SCH (14:43)
[2019-07-05] MEDS: CEFTRIAXONE 2 G in DEXTROSE 5% WATER 50 ML IV SCH (15:52)
[2019-07-05 18:20] LABS: CHLORIDE 102 mEq/L (98-107)
[2019-07-05] MEDS: BUDESONIDE 0.5MG/2ML NEB HHN SCH (20:34)
[2019-07-06] VITALS (93 sets, daily range): BP systolic 69–150; BP diastolic 42–90
[2019-07-06] MEDS: DILTIAZEM HCL 125 MG in DEXT 5% WATER 100 ML IV SCH (01:00)
[2019-07-06] MEDS: IPRATROPIUM/ALBUTEROL 0.5-3(2.5)MG/3ML NEB HHN SCH ×4 (01:51→20:15)
[2019-07-06] MEDS: BLOOD SUGAR DIAGNOSTIC STRIP TEST SCH ×3 (05:55→18:53)
[2019-07-06] MEDS: PROPOFOL 10MG/ML 100ML 100 ML IV PRN (06:08)
[2019-07-06] MEDS: INSULIN LISPRO 100 UNITS/ML SUBCUT SCH ×3 (06:08→18:54)
[2019-07-06] MEDS: METOPROLOL TARTRATE 25MG TABLET PO SCH ×3 (06:09→21:34)
[2019-07-06] MEDS: DILTIAZEM HCL 90MG TABLET PO SCH ×2 (06:09→12:00)
[2019-07-06] MEDS: METRONIDAZOLE 500 MG PREMIX 100 ML IV SCH ×3 (06:11→21:33)
[2019-07-06] MEDS: AMIODARONE HCL 900 MG in DEXT 5% WATER 482 ML IV PRN (06:27)
[2019-07-06 07:21] LABS: CHLORIDE 110 mEq/L (98-107)
[2019-07-06 07:25] LABS: MEAN CORPUSCULAR HEMOGLOBIN 30.2 pg (28.0-32.0); MEAN CORPUSCULAR VOLUME 86.8 fL (80.0-94.0); MEAN PLATELET VOLUME 8.6 fl (7.4-10.4); PLATELET 404 x1000/uL (130-400); RED BLOOD CELL COUNT 2.93 mill/uL (4.7-6.1); RED CELL DISTRIBUTION WIDTH 19.1 % (11.6-14.6)
[2019-07-06 07:43] LABS: BG BASE EXCESS -2.2 mmol/L (-2.0-2.0); BG CARBOXYHEMOGLOBIN 0.2 % (0.5-1.5); BG DEOXYHEMOGLOBIN 3.3 % (0.0-5.0); BG FRACTION INSPIRED OXYGEN 60; BG METHEMOGLOBIN 0.3 % (0.0-1.5); BG OXYGEN SATURATION 96.7 % (92.0-98.5); BG OXYHEMOGLOBIN 96.2 % (94.0-97.0); BG PCO2 30.6 mmHg (35.0-45.0); BG PH 7.455 (7.350-7.450); BG PO2 94.2 mmHg (75.0-100.0); BG SAMPLE SITE A-LINE; BG TIDAL VOLUME(mL) 500 mL; BG TOTAL HEMOGLOBIN 10.1 g/dL (12.0-18.0); BG VENT MODE VENT - A/C; BG VENT RATE 16 set
[2019-07-06 08:06] LABS: HEMATOCRIT. 25.4 % (42.0-52.0); HEMOGLOBIN. 8.8 g/dL (14.0-18.0)
[2019-07-06] MEDS: BUDESONIDE 0.5MG/2ML NEB HHN SCH (08:21)
[2019-07-06] MEDS ORDERED: POTASSIUM CHLORIDE INJ 40 MEQ in DEXT 5% WATER 250 ML IV NR (10:00)
[2019-07-06] MEDS: FUROSEMIDE 40MG/4ML VIAL IVP SCH (10:07)
[2019-07-06] MEDS: SPIRONOLACTONE 25MG TABLET NG SCH (10:07)
[2019-07-06] MEDS: TAMSULOSIN HCL 0.4MG SR CAPSULE PO SCH ×2 (10:08→18:52)
[2019-07-06] MEDS: INSULIN GLARGINE UD 100 UNITS/ML SYR SUBCUT SCH ×2 (10:09→21:34)
[2019-07-06] MEDS: LACTOBACILLUS GG CAPSULE PO SCH (10:29)
[2019-07-06] MEDS: SODIUM CHLORIDE 0.9% 1,000 ML IV SCH (10:30)
[2019-07-06 11:19] LABS: HEMATOCRIT 30.4 % (42.0-52.0); HEMOGLOBIN 10.2 g/dL (14.0-18.0)
[2019-07-06] MEDS: CEFTRIAXONE 2 G in DEXTROSE 5% WATER 50 ML IV SCH (15:05)
[2019-07-06] MEDS: FENTANYL CITRATE/PF 500 MCG in SODIUM CHLORIDE 0.9% 40 ML IV PRN ×2 (15:08→19:49)
[2019-07-06 16:24] LABS: PLATELET ESTIMATE INCREASED
[2019-07-06] MEDS: DILTIAZEM HCL 60MG TABLET PO SCH (18:52)
[2019-07-06] MEDS: MIDAZOLAM HCL 50 MG in DEXTROSE 5% WATER 40 ML IV PRN (19:50)
[2019-07-07] VITALS (79 sets, daily range): BP systolic 103–134; BP diastolic 56–76
[2019-07-07] MEDS: BLOOD SUGAR DIAGNOSTIC STRIP TEST SCH ×4 (00:05→18:04)
[2019-07-07] MEDS: DILTIAZEM HCL 60MG TABLET PO SCH ×4 (00:05→18:02)
[2019-07-07] MEDS: INSULIN LISPRO 100 UNITS/ML SUBCUT SCH ×4 (00:07→18:03)
[2019-07-07] MEDS: FENTANYL CITRATE/PF 500 MCG in SODIUM CHLORIDE 0.9% 40 ML IV PRN ×2 (03:14→17:25)
[2019-07-07] MEDS: METOPROLOL TARTRATE 25MG TABLET PO SCH ×3 (05:09→21:13)
[2019-07-07] MEDS: METRONIDAZOLE 500 MG PREMIX 100 ML IV SCH ×3 (05:26→21:13)
[2019-07-07] MEDS: SODIUM CHLORIDE 0.9% 1,000 ML IV SCH ×2 (05:26→14:49)
[2019-07-07 05:53] LABS: CHLORIDE 105 mEq/L (98-107)
[2019-07-07 06:56] LABS: MEAN CORPUSCULAR HEMOGLOBIN 29.7 pg (28.0-32.0); MEAN CORPUSCULAR VOLUME 87.5 fL (80.0-94.0); MEAN PLATELET VOLUME 8.9 fl (7.4-10.4); PLATELET 464 x1000/uL (130-400); RED BLOOD CELL COUNT 3.47 mill/uL (4.7-6.1)
[2019-07-07 07:14] LABS: HEMATOCRIT. 30.3 % (42.0-52.0); HEMOGLOBIN. 10.3 g/dL (14.0-18.0)
[2019-07-07] MEDS: BUDESONIDE 0.5MG/2ML NEB HHN SCH ×2 (08:13→20:02)
[2019-07-07] MEDS: IPRATROPIUM/ALBUTEROL 0.5-3(2.5)MG/3ML NEB HHN SCH ×3 (08:13→20:03)
[2019-07-07 08:42] LABS: BG BASE EXCESS 1.8 mmol/L (-2.0-2.0); BG CARBOXYHEMOGLOBIN 0.3 % (0.5-1.5); BG DEOXYHEMOGLOBIN 6.5 % (0.0-5.0); BG FRACTION INSPIRED OXYGEN 50; BG HCO3 ACT 25.8 mmol/L (22.0-26.0); BG METHEMOGLOBIN 0.3 % (0.0-1.5); BG OXYGEN SATURATION 93.5 % (92.0-98.5); BG OXYHEMOGLOBIN 92.9 % (94.0-97.0); BG PCO2 37.9 mmHg (35.0-45.0); BG PO2 70.1 mmHg (75.0-100.0); BG SAMPLE SITE RIGHT RADIAL; BG TIDAL VOLUME(mL) 500 mL; BG TOTAL HEMOGLOBIN 10.6 g/dL (12.0-18.0); BG VENT MODE VENT - A/C; BG VENT RATE 12 set
[2019-07-07] MEDS ORDERED: POTASSIUM PHOS,M-BASIC-D-BASIC 20 MMOL in DEXT 5% WATER 243.3333 ML IV NR (09:00)
[2019-07-07] MEDS: SPIRONOLACTONE 25MG TABLET NG SCH (09:27)
[2019-07-07] MEDS: LACTOBACILLUS GG CAPSULE PO SCH (09:27)
[2019-07-07] MEDS: FUROSEMIDE 40MG/4ML VIAL IVP SCH (09:27)
[2019-07-07] MEDS: INSULIN GLARGINE UD 100 UNITS/ML SYR SUBCUT SCH ×2 (09:28→22:54)
[2019-07-07] MEDS: TAMSULOSIN HCL 0.4MG SR CAPSULE PO SCH ×2 (09:28→18:02)
[2019-07-07] MEDS ORDERED: AMIODARONE HCL 200 MG TABLET PO SCH (10:00)
[2019-07-07 12:56] LABS: PLATELET ESTIMATE INCREASED
[2019-07-07] MEDS: CEFTRIAXONE 2 G in DEXTROSE 5% WATER 50 ML IV SCH (14:49)
[2019-07-07] MEDS: MIDAZOLAM HCL 50 MG in DEXTROSE 5% WATER 40 ML IV PRN (14:50)
[2019-07-07] MEDS: AMIODARONE HCL 200 MG TABLET PO SCH (21:13)
[2019-07-08] VITALS (83 sets, daily range): BP systolic 103–165; BP diastolic 53–90
[2019-07-08] MEDS: DILTIAZEM HCL 60MG TABLET PO SCH ×5 (00:11→23:15)
[2019-07-08] MEDS: BLOOD SUGAR DIAGNOSTIC STRIP TEST SCH ×5 (00:11→23:36)
[2019-07-08] MEDS: INSULIN LISPRO 100 UNITS/ML SUBCUT SCH ×5 (00:12→23:13)
[2019-07-08] MEDS: FENTANYL CITRATE/PF 500 MCG in SODIUM CHLORIDE 0.9% 40 ML IV PRN (00:13)
[2019-07-08] MEDS: IPRATROPIUM/ALBUTEROL 0.5-3(2.5)MG/3ML NEB HHN SCH ×4 (01:51→20:25)
[2019-07-08] MEDS: METOPROLOL TARTRATE 25MG TABLET PO SCH ×3 (05:58→21:23)
[2019-07-08 05:59] LABS: CHLORIDE 104 mEq/L (98-107)
[2019-07-08 06:03] LABS: HEMOGLOBIN. 10.9 g/dL (14.0-18.0); MEAN CORPUSCULAR HEMOGLOBIN 28.9 pg (28.0-32.0); MEAN PLATELET VOLUME 8.7 fl (7.4-10.4); PLATELET 515 x1000/uL (130-400); RED BLOOD CELL COUNT 3.79 mill/uL (4.7-6.1); RED CELL DISTRIBUTION WIDTH 19.8 % (11.6-14.6)
[2019-07-08 06:08] LABS: PHOSPHORUS 2.4 mg/dL (2.5-4.9)
[2019-07-08 07:46] LABS: BG BASE EXCESS 4.7 mmol/L (-2.0-2.0); BG CARBOXYHEMOGLOBIN 0.3 % (0.5-1.5); BG DEOXYHEMOGLOBIN 6.1 % (0.0-5.0); BG FRACTION INSPIRED OXYGEN 50; BG HCO3 ACT 28.7 mmol/L (22.0-26.0); BG OXYGEN SATURATION 93.9 % (92.0-98.5); BG OXYHEMOGLOBIN 93.6 % (94.0-97.0); BG PCO2 40.2 mmHg (35.0-45.0); BG PH 7.471 (7.350-7.450); BG PO2 70.3 mmHg (75.0-100.0); BG SAMPLE SITE RIGHT RADIAL; BG TIDAL VOLUME(mL) 500 mL; BG TOTAL HEMOGLOBIN 11.1 g/dL (12.0-18.0); BG VENT MODE VENT - A/C; BG VENT RATE 12 set
[2019-07-08] MEDS: FUROSEMIDE 40MG/4ML VIAL IVP SCH (08:35)
[2019-07-08] MEDS: SPIRONOLACTONE 25MG TABLET NG SCH (08:35)
[2019-07-08] MEDS: AMIODARONE HCL 200 MG TABLET PO SCH ×2 (08:36→21:23)
[2019-07-08] MEDS: TAMSULOSIN HCL 0.4MG SR CAPSULE PO SCH ×2 (08:36→16:12)
[2019-07-08] MEDS: LACTOBACILLUS GG CAPSULE PO SCH (08:37)
[2019-07-08] MEDS ORDERED: DIATR MEGLU/DIATRIZOATE SOLN 30ML PO SCH (09:00)
[2019-07-08 10:45] LABS: PLATELET ESTIMATE INCREASED
[2019-07-08] MEDS ORDERED: IOHEXOL-300 100 ML BOTTLE ONE (11:24)
[2019-07-08] MEDS: SODIUM CHLORIDE 0.9% 1,000 ML IV SCH (12:13)
[2019-07-08] MEDS: INSULIN GLARGINE UD 100 UNITS/ML SYR SUBCUT SCH ×2 (12:13→21:24)
[2019-07-08] MEDS ORDERED: FUROSEMIDE 40MG/4ML VIAL IVP NR (12:15)
[2019-07-08] MEDS: MEROPENEM 500 MG in SODIUM CHLORIDE 0.9% 50 ML IV SCH ×2 (12:40→21:23)
[2019-07-08] MEDS ORDERED: POTASSIUM PHOS,M-BASIC-D-BASIC 20 MMOL in DEXT 5% WATER 243.3333 ML IV NR (13:30)
[2019-07-08 15:33] LABS: BG BASE EXCESS 7.3 mmol/L (-2.0-2.0); BG CARBOXYHEMOGLOBIN 0.2 % (0.5-1.5); BG CPAP (cmH2O) 0 cm(H2O); BG HCO3 ACT 30.9 mmol/L (22.0-26.0); BG METHEMOGLOBIN 0.1 % (0.0-1.5); BG OXYHEMOGLOBIN 93.7 % (94.0-97.0); BG PCO2 39.9 mmHg (35.0-45.0); BG PH 7.507 (7.350-7.450); BG PO2 66.9 mmHg (75.0-100.0); BG SAMPLE SITE RIGHT RADIAL; BG TOTAL HEMOGLOBIN 12.6 g/dL (12.0-18.0); BG VENT MODE VENT - CPAP
[2019-07-08 20:09] LABS: HEPATITIS B SURFACE ANTIGEN NEGATIVE
[2019-07-08] MEDS: BUDESONIDE 0.5MG/2ML NEB HHN SCH (20:25)
[2019-07-08 20:39] LABS: HEPATITIS A AB IGM NEGATIVE (NEGATIVE)
[2019-07-09] VITALS (71 sets, daily range): BP systolic 94–158; BP diastolic 28–88
[2019-07-09] MEDS: IPRATROPIUM/ALBUTEROL 0.5-3(2.5)MG/3ML NEB HHN SCH ×4 (02:01→20:00)
[2019-07-09] MEDS: MORPHINE SULFATE 2 MG/ML CPJ (NOT FOR IM USE) IV PRN (02:13)
[2019-07-09 05:25] LABS: BASOPHILS % 0.4 % (0.0-2.0); EOSINOPHILS % 0.2 % (0.0-5.0); HEMATOCRIT. 32.3 % (42.0-52.0); LYMPHOCYTES % 7.3 % (20.0-50.0); MEAN CORPUSCULAR HEMOGLOBIN 29.7 pg (28.0-32.0); MEAN CORPUSCULAR VOLUME 86.8 fL (80.0-94.0); MEAN PLATELET VOLUME 8.5 fl (7.4-10.4); MONOCYTES % 9.4 % (2.0-8.0); NEUTROPHILS % 82.7 % (40.0-76.0); PLATELET 458 x1000/uL (130-400); RED BLOOD CELL COUNT 3.72 mill/uL (4.7-6.1); RED CELL DISTRIBUTION WIDTH 19.6 % (11.6-14.6)
[2019-07-09] MEDS: MEROPENEM 500 MG in SODIUM CHLORIDE 0.9% 50 ML IV SCH ×3 (05:32→22:11)
[2019-07-09] MEDS: DILTIAZEM HCL 60MG TABLET PO SCH ×3 (05:33→17:42)
[2019-07-09] MEDS: METOPROLOL TARTRATE 25MG TABLET PO SCH ×3 (05:33→22:10)
[2019-07-09] MEDS: BLOOD SUGAR DIAGNOSTIC STRIP TEST SCH ×3 (05:34→17:26)
[2019-07-09] MEDS: INSULIN LISPRO 100 UNITS/ML SUBCUT SCH ×3 (05:34→17:26)
[2019-07-09 05:36] LABS: CHLORIDE 100 mEq/L (98-107)
[2019-07-09] MEDS: SPIRONOLACTONE 25MG TABLET NG SCH (09:11)
[2019-07-09] MEDS: AMIODARONE HCL 200 MG TABLET PO SCH ×2 (09:11→22:09)
[2019-07-09] MEDS: TAMSULOSIN HCL 0.4MG SR CAPSULE PO SCH ×2 (09:11→17:41)
[2019-07-09] MEDS: FUROSEMIDE 40MG/4ML VIAL IVP SCH (09:12)
[2019-07-09] MEDS: LACTOBACILLUS GG CAPSULE PO SCH (09:12)
[2019-07-09] MEDS: INSULIN GLARGINE UD 100 UNITS/ML SYR SUBCUT SCH ×2 (09:20→23:03)
[2019-07-09] MEDS ORDERED: FUROSEMIDE 20MG/2ML VIAL IVP NR (11:15)
[2019-07-09] MEDS ORDERED: POTASSIUM CHLORIDE 20MEQ/PACKET PO NR (13:00)
[2019-07-09] MEDS ORDERED: MAGNESIUM 2 G PREMIX 50 ML IV NR (13:00)
[2019-07-09] MEDS ORDERED: SODIUM BICARBONATE 4% (2.4MEQ) 5ML VIAL IV ONE (13:58)
[2019-07-10] VITALS (31 sets, daily range): BP systolic 102–140; BP diastolic 50–78
[2019-07-10] MEDS: BLOOD SUGAR DIAGNOSTIC STRIP TEST SCH ×4 (00:57→18:09)
[2019-07-10] MEDS: DILTIAZEM HCL 60MG TABLET PO SCH ×4 (01:07→18:22)
[2019-07-10] MEDS: INSULIN LISPRO 100 UNITS/ML SUBCUT SCH ×5 (01:09→23:27)
[2019-07-10] MEDS: IPRATROPIUM/ALBUTEROL 0.5-3(2.5)MG/3ML NEB HHN SCH ×4 (02:03→20:37)
[2019-07-10 06:06] LABS: HEMATOCRIT. 33.1 % (42.0-52.0); HEMOGLOBIN. 10.9 g/dL (14.0-18.0); MEAN CORPUSCULAR HEMOGLOBIN 29.2 pg (28.0-32.0); MEAN CORPUSCULAR VOLUME 88.7 fL (80.0-94.0); MEAN PLATELET VOLUME 8.4 fl (7.4-10.4); PLATELET 453 x1000/uL (130-400); RED BLOOD CELL COUNT 3.73 mill/uL (4.7-6.1); RED CELL DISTRIBUTION WIDTH 20.4 % (11.6-14.6)
[2019-07-10 06:09] LABS: CHLORIDE 97 mEq/L (98-107)
[2019-07-10] MEDS: MEROPENEM 500 MG in SODIUM CHLORIDE 0.9% 50 ML IV SCH ×3 (06:27→22:24)
[2019-07-10] MEDS: METOPROLOL TARTRATE 25MG TABLET PO SCH ×3 (06:28→22:24)
[2019-07-10] MEDS: AMIODARONE HCL 200 MG TABLET PO SCH ×2 (08:59→22:24)
[2019-07-10] MEDS: SPIRONOLACTONE 25MG TABLET NG SCH (08:59)
[2019-07-10] MEDS: LACTOBACILLUS GG CAPSULE PO SCH (08:59)
[2019-07-10] MEDS: TAMSULOSIN HCL 0.4MG SR CAPSULE PO SCH (08:59)
[2019-07-10] MEDS: FUROSEMIDE 40MG/4ML VIAL IVP SCH (08:59)
[2019-07-10] MEDS: INSULIN GLARGINE UD 100 UNITS/ML SYR SUBCUT SCH ×2 (09:13→23:27)
[2019-07-10] MEDS ORDERED: POTASSIUM CHLORIDE 10MEQ TABLET SR PO SCH (10:15)
[2019-07-10] MEDS: POTASSIUM CHLORIDE 20MEQ/PACKET PO SCH (10:33)
[2019-07-10] MEDS: ENOXAPARIN 40MG/0.4ML SYR SUBCUT SCH (10:33)
[2019-07-10] MEDS: GUAIFENESIN-DM 200MG-20MG/10ML UDC PO PRN (18:44)
[2019-07-10 19:22] LABS: PLATELET ESTIMATE INCREASED
[2019-07-11] VITALS (11 sets, daily range): BP systolic 98–154; BP diastolic 53–92
[2019-07-11] MEDS: IPRATROPIUM/ALBUTEROL 0.5-3(2.5)MG/3ML NEB HHN SCH ×4 (00:50→20:41)
[2019-07-11] MEDS: BLOOD SUGAR DIAGNOSTIC STRIP TEST SCH ×5 (00:50→22:08)
[2019-07-11] MEDS: DILTIAZEM HCL 60MG TABLET PO SCH ×4 (01:00→16:58)
[2019-07-11] MEDS: MEROPENEM 500 MG in SODIUM CHLORIDE 0.9% 50 ML IV SCH ×3 (06:28→21:27)
[2019-07-11] MEDS: METOPROLOL TARTRATE 25MG TABLET PO SCH ×3 (06:31→21:26)
[2019-07-11] MEDS: INSULIN LISPRO 100 UNITS/ML SUBCUT SCH ×4 (06:40→22:09)
[2019-07-11 07:20] LABS: CHLORIDE 97 mEq/L (98-107)
[2019-07-11 07:35] LABS: BASOPHILS % 0.3 % (0.0-2.0); EOSINOPHILS % 0.5 % (0.0-5.0); HEMATOCRIT. 33.1 % (42.0-52.0); HEMOGLOBIN. 10.9 g/dL (14.0-18.0); LYMPHOCYTES % 8.3 % (20.0-50.0); MEAN CORPUSCULAR HEMOGLOBIN 29.1 pg (28.0-32.0); MEAN CORPUSCULAR VOLUME 88.3 fL (80.0-94.0); MEAN PLATELET VOLUME 8.5 fl (7.4-10.4); MONOCYTES % 8.7 % (2.0-8.0); NEUTROPHILS % 82.2 % (40.0-76.0); PLATELET 455 x1000/uL (130-400); RED BLOOD CELL COUNT 3.74 mill/uL (4.7-6.1); RED CELL DISTRIBUTION WIDTH 20.5 % (11.6-14.6)
[2019-07-11] MEDS: FUROSEMIDE 40MG/4ML VIAL IVP SCH (09:19)
[2019-07-11] MEDS: LACTOBACILLUS GG CAPSULE PO SCH (09:19)
[2019-07-11] MEDS: AMIODARONE HCL 200 MG TABLET PO SCH ×2 (09:20→21:26)
[2019-07-11] MEDS: POTASSIUM CHLORIDE 20MEQ/PACKET PO SCH (09:20)
[2019-07-11] MEDS: SPIRONOLACTONE 25MG TABLET NG SCH (09:20)
[2019-07-11] MEDS ORDERED: POTASSIUM CHLORIDE 20MEQ/PACKET PO SCH (09:30)
[2019-07-11] MEDS: INSULIN GLARGINE UD 100 UNITS/ML SYR SUBCUT SCH ×2 (09:39→22:08)
[2019-07-11] MEDS: GUAIFENESIN-DM 200MG-20MG/10ML UDC PO PRN (15:34)
[2019-07-11] MEDS: ACETAMINOPHEN 325MG TABLET PO PRN (22:08)
[2019-07-12] VITALS (16 sets, daily range): BP systolic 100–139; BP diastolic 56–76
[2019-07-12] MEDS: GUAIFENESIN-DM 200MG-20MG/10ML UDC PO PRN (00:06)
[2019-07-12] MEDS: IPRATROPIUM/ALBUTEROL 0.5-3(2.5)MG/3ML NEB HHN SCH ×4 (01:36→21:56)
[2019-07-12] MEDS: MEROPENEM 500 MG in SODIUM CHLORIDE 0.9% 50 ML IV SCH ×3 (04:52→21:08)
[2019-07-12] MEDS: DILTIAZEM HCL 60MG TABLET PO SCH ×4 (04:52→17:46)
[2019-07-12] MEDS: BLOOD SUGAR DIAGNOSTIC STRIP TEST SCH ×3 (04:53→18:00)
[2019-07-12] MEDS: METOPROLOL TARTRATE 25MG TABLET PO SCH ×3 (04:53→21:07)
[2019-07-12] MEDS: INSULIN LISPRO 100 UNITS/ML SUBCUT SCH ×3 (05:20→18:15)
[2019-07-12 07:13] LABS: BASOPHILS % 0.4 % (0.0-2.0); HEMATOCRIT. 32.5 % (42.0-52.0); HEMOGLOBIN. 10.9 g/dL (14.0-18.0); LYMPHOCYTES % 9.9 % (20.0-50.0); MEAN CORPUSCULAR HEMOGLOBIN 29.4 pg (28.0-32.0); MEAN CORPUSCULAR VOLUME 87.5 fL (80.0-94.0); MEAN PLATELET VOLUME 8.7 fl (7.4-10.4); MONOCYTES % 9.8 % (2.0-8.0); NEUTROPHILS % 78.9 % (40.0-76.0); PLATELET 442 x1000/uL (130-400); RED BLOOD CELL COUNT 3.72 mill/uL (4.7-6.1); RED CELL DISTRIBUTION WIDTH 19.9 % (11.6-14.6)
[2019-07-12 07:34] LABS: CHLORIDE 97 mEq/L (98-107)
[2019-07-12 07:43] LABS: PHOSPHORUS 2.2 mg/dL (2.5-4.9)
[2019-07-12] MEDS: POTASSIUM CHLORIDE 20MEQ/PACKET PO SCH (09:34)
[2019-07-12] MEDS: AMIODARONE HCL 200 MG TABLET PO SCH ×2 (09:34→21:07)
[2019-07-12] MEDS: ENOXAPARIN 40MG/0.4ML SYR SUBCUT SCH (09:34)
[2019-07-12] MEDS: SPIRONOLACTONE 25MG TABLET NG SCH (09:34)
[2019-07-12] MEDS: LACTOBACILLUS GG CAPSULE PO SCH (09:34)
[2019-07-12] MEDS: INSULIN GLARGINE UD 100 UNITS/ML SYR SUBCUT SCH (09:35)
[2019-07-12] MEDS ORDERED: MAGNESIUM 2 G PREMIX 50 ML IV NR (21:30)
[2019-07-13] VITALS (8 sets, daily range): BP systolic 106–126; BP diastolic 58–97
[2019-07-13] MEDS: BLOOD SUGAR DIAGNOSTIC STRIP TEST SCH ×4 (00:09→16:49)
[2019-07-13] MEDS: INSULIN LISPRO 100 UNITS/ML SUBCUT SCH ×4 (00:18→16:48)
[2019-07-13] MEDS: INSULIN GLARGINE UD 100 UNITS/ML SYR SUBCUT SCH ×3 (00:19→22:48)
[2019-07-13] MEDS: DILTIAZEM HCL 60MG TABLET PO SCH ×4 (00:20→16:49)
[2019-07-13] MEDS: IPRATROPIUM/ALBUTEROL 0.5-3(2.5)MG/3ML NEB HHN SCH ×4 (02:59→22:05)
[2019-07-13] MEDS: METOPROLOL TARTRATE 25MG TABLET PO SCH ×3 (06:00→22:47)
[2019-07-13] MEDS: MEROPENEM 500 MG in SODIUM CHLORIDE 0.9% 50 ML IV SCH ×3 (06:05→22:47)
[2019-07-13 06:54] LABS: EOSINOPHILS % 1.2 % (0.0-5.0); HEMATOCRIT. 32.7 % (42.0-52.0); LYMPHOCYTES % 12.2 % (20.0-50.0); MEAN CORPUSCULAR HEMOGLOBIN 29.6 pg (28.0-32.0); MEAN CORPUSCULAR VOLUME 87.8 fL (80.0-94.0); MEAN PLATELET VOLUME 8.5 fl (7.4-10.4); MONOCYTES % 10.9 % (2.0-8.0); NEUTROPHILS % 74.7 % (40.0-76.0); PLATELET 421 x1000/uL (130-400); RED BLOOD CELL COUNT 3.73 mill/uL (4.7-6.1); RED CELL DISTRIBUTION WIDTH 19.8 % (11.6-14.6)
[2019-07-13 07:05] LABS: CHLORIDE 99 mEq/L (98-107)
[2019-07-13] MEDS: AMIODARONE HCL 200 MG TABLET PO SCH ×2 (09:03→21:00)
[2019-07-13] MEDS: ENOXAPARIN 40MG/0.4ML SYR SUBCUT SCH (09:03)
[2019-07-13] MEDS: LACTOBACILLUS GG CAPSULE PO SCH (09:05)
[2019-07-13] MEDS: POTASSIUM CHLORIDE 20MEQ/PACKET PO SCH (09:05)
[2019-07-13] MEDS: GUAIFENESIN-DM 200MG-20MG/10ML UDC PO PRN ×2 (09:05→16:50)
[2019-07-13] MEDS: SPIRONOLACTONE 25MG TABLET NG SCH (09:07)
[2019-07-13] MEDS ORDERED: SODIUM PHOS,M-BASIC-D-BASIC 20 MM in DEXT 5% WATER 243.3333 ML IV NR (11:00)
[2019-07-13] MEDS: ACETAMINOPHEN 325MG TABLET PO PRN (18:00)
[2019-07-13] MEDS: METFORMIN HCL 500MG TABLET PO SCH (21:01)
[2019-07-13] MEDS: GABAPENTIN 400MG CAPSULE PO SCH (22:46)
[2019-07-14] VITALS (8 sets, daily range): BP systolic 105–127; BP diastolic 48–67
[2019-07-14] MEDS: DILTIAZEM HCL 60MG TABLET PO SCH ×4 (00:32→18:00)
[2019-07-14] MEDS: BLOOD SUGAR DIAGNOSTIC STRIP TEST SCH ×4 (00:32→18:00)
[2019-07-14] MEDS: INSULIN LISPRO 100 UNITS/ML SUBCUT SCH ×4 (00:32→18:00)
[2019-07-14] MEDS: IPRATROPIUM/ALBUTEROL 0.5-3(2.5)MG/3ML NEB HHN SCH ×4 (01:10→21:04)
[2019-07-14] MEDS: MEROPENEM 500 MG in SODIUM CHLORIDE 0.9% 50 ML IV SCH ×2 (05:34→19:42)
[2019-07-14] MEDS: GABAPENTIN 400MG CAPSULE PO SCH ×3 (05:34→21:39)
[2019-07-14] MEDS: METOPROLOL TARTRATE 25MG TABLET PO SCH ×3 (05:35→21:39)
[2019-07-14 06:36] LABS: HEMATOCRIT. 34.3 % (42.0-52.0); HEMOGLOBIN. 11.4 g/dL (14.0-18.0); MEAN CORPUSCULAR HEMOGLOBIN 29.7 pg (28.0-32.0); MEAN CORPUSCULAR VOLUME 89.3 fL (80.0-94.0); MEAN PLATELET VOLUME 8.7 fl (7.4-10.4); PLATELET 405 x1000/uL (130-400); RED BLOOD CELL COUNT 3.84 mill/uL (4.7-6.1); RED CELL DISTRIBUTION WIDTH 20.6 % (11.6-14.6)
[2019-07-14 07:11] LABS: CHLORIDE 99 mEq/L (98-107)
[2019-07-14 07:19] LABS: PHOSPHORUS 2.8 mg/dL (2.5-4.9)
[2019-07-14] MEDS: AMIODARONE HCL 200 MG TABLET PO SCH ×2 (09:01→21:38)
[2019-07-14] MEDS: SPIRONOLACTONE 25MG TABLET NG SCH (09:02)
[2019-07-14] MEDS: METFORMIN HCL 500MG TABLET PO SCH (09:02)
[2019-07-14] MEDS: POTASSIUM CHLORIDE 20MEQ/PACKET PO SCH (09:02)
[2019-07-14] MEDS: ENOXAPARIN 40MG/0.4ML SYR SUBCUT SCH (09:03)
[2019-07-14] MEDS: LACTOBACILLUS GG CAPSULE PO SCH (09:09)
[2019-07-14] MEDS: GUAIFENESIN-DM 200MG-20MG/10ML UDC PO PRN (09:18)
[2019-07-14] MEDS: INSULIN GLARGINE UD 100 UNITS/ML SYR SUBCUT SCH (10:12)
[2019-07-14 11:34] LABS: PLATELET ESTIMATE SLIGHTLY INCREASED
[2019-07-15] VITALS: BP 150/77
[2019-07-15] MEDS: BLOOD SUGAR DIAGNOSTIC STRIP TEST SCH ×4 (00:43→18:00)
[2019-07-15] MEDS: MEROPENEM 500 MG in SODIUM CHLORIDE 0.9% 50 ML IV SCH ×4 (00:49→21:48)
[2019-07-15] MEDS: DILTIAZEM HCL 60MG TABLET PO SCH ×5 (00:50→17:59)
[2019-07-15] MEDS: INSULIN LISPRO 100 UNITS/ML SUBCUT SCH ×4 (00:50→18:34)
[2019-07-15] MEDS: INSULIN GLARGINE UD 100 UNITS/ML SYR SUBCUT SCH ×3 (00:51→21:48)
[2019-07-15] MEDS: IPRATROPIUM/ALBUTEROL 0.5-3(2.5)MG/3ML NEB HHN SCH ×4 (01:41→20:45)
[2019-07-15] MEDS: ACETAMINOPHEN 325MG TABLET PO PRN (02:17)
[2019-07-15 04:00] VITALS: BP 120/68
[2019-07-15 06:25] LABS: HEMATOCRIT. 33.4 % (42.0-52.0); HEMOGLOBIN. 11.1 g/dL (14.0-18.0); MEAN CORPUSCULAR HEMOGLOBIN 29.7 pg (28.0-32.0); MEAN CORPUSCULAR VOLUME 89.2 fL (80.0-94.0); MEAN PLATELET VOLUME 8.5 fl (7.4-10.4); PLATELET 380 x1000/uL (130-400); RED BLOOD CELL COUNT 3.75 mill/uL (4.7-6.1); RED CELL DISTRIBUTION WIDTH 20.4 % (11.6-14.6)
[2019-07-15] MEDS: METOPROLOL TARTRATE 25MG TABLET PO SCH ×3 (06:39→21:47)
[2019-07-15] MEDS: GABAPENTIN 400MG CAPSULE PO SCH ×3 (06:40→21:47)
[2019-07-15 06:57] LABS: CHLORIDE 100 mEq/L (98-107)
[2019-07-15 07:08] LABS: PHOSPHORUS 2.5 mg/dL (2.5-4.9)
[2019-07-15 08:00] VITALS: BP 111/56
[2019-07-15] MEDS: ENOXAPARIN 40MG/0.4ML SYR SUBCUT SCH (08:58)
[2019-07-15] MEDS: LACTOBACILLUS GG CAPSULE PO SCH (08:59)
[2019-07-15] MEDS: AMIODARONE HCL 200 MG TABLET PO SCH ×2 (08:59→21:47)
[2019-07-15] MEDS: METFORMIN HCL 500MG TABLET PO SCH ×2 (09:00→18:01)
[2019-07-15] MEDS: SPIRONOLACTONE 25MG TABLET NG SCH (10:03)
[2019-07-15 10:51] LABS: PLATELET ESTIMATE NORMAL
[2019-07-15 16:00] VITALS: BP 95/59
[2019-07-15 20:00] VITALS: BP 123/65
[2019-07-16] VITALS: BP 152/78
[2019-07-16] MEDS: INSULIN LISPRO 100 UNITS/ML SUBCUT SCH ×5 (00:24→23:11)
[2019-07-16] MEDS: DILTIAZEM HCL 60MG TABLET PO SCH ×4 (00:25→18:00)
[2019-07-16] MEDS: BLOOD SUGAR DIAGNOSTIC STRIP TEST SCH ×4 (00:25→18:14)
[2019-07-16] MEDS: IPRATROPIUM/ALBUTEROL 0.5-3(2.5)MG/3ML NEB HHN SCH ×6 (01:11→20:37)
[2019-07-16] MEDS: ACETYLCYSTEINE 100MG/ML 10% VIAL 4ML INH SCH ×3 (01:12→17:55)
[2019-07-16 04:00] VITALS: BP 126/66
[2019-07-16 05:13] LABS: HEMATOCRIT. 33.5 % (42.0-52.0); HEMOGLOBIN. 11.3 g/dL (14.0-18.0); MEAN CORPUSCULAR HEMOGLOBIN 30.2 pg (28.0-32.0); MEAN PLATELET VOLUME 8.5 fl (7.4-10.4); PLATELET 331 x1000/uL (130-400); RED BLOOD CELL COUNT 3.76 mill/uL (4.7-6.1)
[2019-07-16] MEDS: GABAPENTIN 400MG CAPSULE PO SCH ×3 (06:03→22:54)
[2019-07-16] MEDS: METOPROLOL TARTRATE 25MG TABLET PO SCH ×3 (06:03→22:00)
[2019-07-16 06:15] LABS: CHLORIDE 101 mEq/L (98-107)
[2019-07-16 07:32] LABS: PLATELET ESTIMATE NORMAL
[2019-07-16 08:00] VITALS: BP 114/58
[2019-07-16] MEDS: METFORMIN HCL 500MG TABLET PO SCH ×2 (08:04→18:12)
[2019-07-16] MEDS: LACTOBACILLUS GG CAPSULE PO SCH (08:04)
[2019-07-16] MEDS: ENOXAPARIN 40MG/0.4ML SYR SUBCUT SCH (08:05)
[2019-07-16] MEDS: AMIODARONE HCL 200 MG TABLET PO SCH ×2 (10:01→22:53)
[2019-07-16] MEDS: SPIRONOLACTONE 25MG TABLET NG SCH (10:02)
[2019-07-16] MEDS: INSULIN GLARGINE UD 100 UNITS/ML SYR SUBCUT SCH ×2 (12:57→23:10)
[2019-07-16 16:00] VITALS: BP 100/51
[2019-07-16 20:00] VITALS: BP 92/51
[2019-07-17] VITALS: BP 129/64
[2019-07-17] MEDS: ACETYLCYSTEINE 100MG/ML 10% VIAL 4ML INH SCH ×3 (00:38→15:58)
[2019-07-17] MEDS: IPRATROPIUM/ALBUTEROL 0.5-3(2.5)MG/3ML NEB HHN SCH ×6 (00:38→20:20)
[2019-07-17 04:00] VITALS: BP 109/49
[2019-07-17] MEDS: BLOOD SUGAR DIAGNOSTIC STRIP TEST SCH ×4 (06:00→18:07)
[2019-07-17] MEDS: DILTIAZEM HCL 60MG TABLET PO SCH ×4 (06:00→18:29)
[2019-07-17] MEDS: METOPROLOL TARTRATE 25MG TABLET PO SCH ×3 (06:00→21:12)
[2019-07-17] MEDS: GABAPENTIN 400MG CAPSULE PO SCH ×3 (07:01→21:15)
[2019-07-17] MEDS: INSULIN LISPRO 100 UNITS/ML SUBCUT SCH ×3 (07:08→18:26)
[2019-07-17 07:09] LABS: BASOPHILS % 0.6 % (0.0-2.0); EOSINOPHILS % 0.6 % (0.0-5.0); HEMATOCRIT. 32.4 % (42.0-52.0); HEMOGLOBIN. 11.1 g/dL (14.0-18.0); LYMPHOCYTES % 12.8 % (20.0-50.0); MEAN CORPUSCULAR HEMOGLOBIN 30.4 pg (28.0-32.0); MEAN CORPUSCULAR VOLUME 88.4 fL (80.0-94.0); MEAN PLATELET VOLUME 8.8 fl (7.4-10.4); MONOCYTES % 10.9 % (2.0-8.0); NEUTROPHILS % 75.1 % (40.0-76.0); PLATELET 292 x1000/uL (130-400); RED BLOOD CELL COUNT 3.66 mill/uL (4.7-6.1); RED CELL DISTRIBUTION WIDTH 21.4 % (11.6-14.6)
[2019-07-17 08:00] VITALS: BP 121/58
[2019-07-17 08:56] LABS: CHLORIDE 103 mEq/L (98-107)
[2019-07-17] MEDS: ENOXAPARIN 40MG/0.4ML SYR SUBCUT SCH (08:57)
[2019-07-17] MEDS: METFORMIN HCL 500MG TABLET PO SCH ×2 (09:02→18:28)
[2019-07-17] MEDS: SPIRONOLACTONE 25MG TABLET NG SCH (09:02)
[2019-07-17] MEDS: AMIODARONE HCL 200 MG TABLET PO SCH ×2 (09:02→21:15)
[2019-07-17] MEDS: LACTOBACILLUS GG CAPSULE PO SCH (09:02)
[2019-07-17] MEDS: INSULIN GLARGINE UD 100 UNITS/ML SYR SUBCUT SCH ×2 (10:30→21:17)
[2019-07-17 12:00] VITALS: BP 104/60
[2019-07-17] MEDS ORDERED: SODIUM POLYSTYRENE SULFONATE 15 G/60 ML BOT PO NR (12:00)
[2019-07-17 16:00] VITALS: BP 110/84
[2019-07-17] MEDS: TAMSULOSIN HCL 0.4MG SR CAPSULE PO SCH (18:30)
[2019-07-17 20:00] VITALS: BP 112/58
[2019-07-18] VITALS: BP 112/54
[2019-07-18] MEDS: ACETYLCYSTEINE 100MG/ML 10% VIAL 4ML INH SCH ×2 (00:38→09:33)
[2019-07-18] MEDS: IPRATROPIUM/ALBUTEROL 0.5-3(2.5)MG/3ML NEB HHN SCH ×4 (00:38→12:42)
[2019-07-18] MEDS: INSULIN LISPRO 100 UNITS/ML SUBCUT SCH ×3 (01:16→11:08)
[2019-07-18 04:00] VITALS: BP 113/67
[2019-07-18] MEDS: BLOOD SUGAR DIAGNOSTIC STRIP TEST SCH ×3 (05:49→11:03)
[2019-07-18] MEDS: DILTIAZEM HCL 60MG TABLET PO SCH ×3 (05:49→11:03)
[2019-07-18] MEDS: GABAPENTIN 400MG CAPSULE PO SCH ×2 (05:49→14:00)
[2019-07-18] MEDS: METOPROLOL TARTRATE 25MG TABLET PO SCH ×2 (05:49→14:00)
[2019-07-18 07:30] LABS: BASOPHILS % 0.7 % (0.0-2.0); HEMATOCRIT. 31.1 % (42.0-52.0); HEMOGLOBIN. 10.4 g/dL (14.0-18.0); LYMPHOCYTES % 14.3 % (20.0-50.0); MEAN CORPUSCULAR HEMOGLOBIN 29.8 pg (28.0-32.0); MEAN CORPUSCULAR VOLUME 88.6 fL (80.0-94.0); MEAN PLATELET VOLUME 8.6 fl (7.4-10.4); MONOCYTES % 11.6 % (2.0-8.0); NEUTROPHILS % 72.4 % (40.0-76.0); PLATELET 270 x1000/uL (130-400); RED BLOOD CELL COUNT 3.51 mill/uL (4.7-6.1); RED CELL DISTRIBUTION WIDTH 21.5 % (11.6-14.6)
[2019-07-18 07:49] LABS: CHLORIDE 101 mEq/L (98-107)
[2019-07-18 08:00] VITALS: BP 95/44
[2019-07-18] MEDS: TAMSULOSIN HCL 0.4MG SR CAPSULE PO SCH (09:01)
[2019-07-18] MEDS: LACTOBACILLUS GG CAPSULE PO SCH (09:01)
[2019-07-18] MEDS: AMIODARONE HCL 200 MG TABLET PO SCH (09:01)
[2019-07-18] MEDS: METFORMIN HCL 500MG TABLET PO SCH (09:02)
[2019-07-18] MEDS: SPIRONOLACTONE 25MG TABLET NG SCH (09:02)
[2019-07-18] MEDS: INSULIN GLARGINE UD 100 UNITS/ML SYR SUBCUT SCH (09:15)
[2019-07-18 12:00] VITALS: BP 95/58
[2019-07-18] MEDS ORDERED: LACTULOSE 20G/30ML UDC PO NR (13:15)
[2019-07-18 14:31] VITALS: BP 95/58
[2019-07-18] MEDS ORDERED: METO25TA6 MT (15:44)
[2019-07-18] MEDS ORDERED: AMI2 PO (15:44)
[2019-07-18] MEDS ORDERED: FURO-151 MT (15:44)
[2019-07-18] MEDS ORDERED: DILT240C91 MT (15:44)
[2019-07-18] MEDS ORDERED: GABA800T97 MT (15:44)
== END 2019-07-18 16:51 | disposition home or self-care (01) | DRG 853 ==
LOC: ER 05:13 → 5EST 06:17 → EDBEDREQTM 06:19 → EDBEDREQ 06:19 → ENRESERV 09:28 → MICUNO 07-03 22:51 → 5EST 07-10 16:40 → 7WST 07-14 12:00
PROVIDERS: ADMIT Internal Medicine; ATTEND Internal Medicine
PROC: 0FT44ZZ Resection of Gallbladder, Percutaneous Endoscopic Approach (ICD-10-PCS; principal; 2019-07-04)
PROC: 5A1955Z Respiratory Ventilation, Greater than 96 Consecutive Hours (ICD-10-PCS; 2019-07-04)
PROC: 0BH17EZ Insertion of Endotracheal Airway into Trachea, Via Natural or Artificial Opening (ICD-10-PCS; 2019-07-04)
PROC: 02HV33Z Insertion of Infusion Device into Superior Vena Cava, Percutaneous Approach (ICD-10-PCS; 2019-07-05)
PROC: B548ZZA Ultrasonography of Superior Vena Cava, Guidance (ICD-10-PCS; 2019-07-05)
PROC: 0W993ZZ Drainage of Right Pleural Cavity, Percutaneous Approach (ICD-10-PCS; 2019-07-09)
DX: A41.9 Sepsis, unspecified organism (principal); N17.0 Acute kidney failure with tubular necrosis; J96.00 Acute respiratory failure, unspecified whether with hypoxia or hypercapnia; K80.01 Calculus of gallbladder with acute cholecystitis with obstruction; E87.4 Mixed disorder of acid-base balance; R18.8 Other ascites; E44.0 Moderate protein-calorie malnutrition; E87.2 Acidosis; E11.9 Type 2 diabetes mellitus without complications; E87.6 Hypokalemia; E83.42 Hypomagnesemia; E83.39 Other disorders of phosphorus metabolism; D64.9 Anemia, unspecified; K82.A1 Gangrene of gallbladder in cholecystitis; E11.65 Type 2 diabetes mellitus with hyperglycemia; R33.8 Other retention of urine; R74.0 Nonspecific elevation of levels of transaminase and lactic acid dehydrogenase [LDH]; E78.1 Pure hyperglyceridemia; E78.5 Hyperlipidemia, unspecified; G62.9 Polyneuropathy, unspecified; I50.9 Heart failure, unspecified; I11.0 Hypertensive heart disease with heart failure; I48.91 Unspecified atrial fibrillation; J44.9 Chronic obstructive pulmonary disease, unspecified; K52.9 Noninfective gastroenteritis and colitis, unspecified; N28.1 Cyst of kidney, acquired; N40.1 Benign prostatic hyperplasia with lower urinary tract symptoms; Z78.1 Physical restraint status; Z79.84 Long term (current) use of oral hypoglycemic drugs; Z79.899 Other long term (current) drug therapy; Z87.891 Personal history of nicotine dependence; Z68.30 Body mass index [BMI] 30.0-30.9, adult; E87.70 Fluid overload, unspecified
CPT/HCPCS: 32555; 36415; 36600; 71045; 73610; 74176; 74177; 76604; 76700; 76937; 78227; 80048; 80053; 80061; 80202; 81003; 82040; 82375; 82550; 82553; 82805; 82962; 83605; 83615; 83735; 83880; 84100; 84132; 84145; 84443; 84478; 84484; 85014; 85018; 85025; 86705; 86709; 86803; 86850; 86900; 87015; 87045; 87340; 87427; 87449; 87493; 87804; 88108; 88304; 88312; 89055; 92610; 93005; 93306; 93970; 94002; 94003; 94640; 94667; 97162; 97164; 97166; 99291; A9537; C1725; J0282; J0330; J0696; J1160; J1650; J1815; J1940; J2185; J2250; J2270; J2370; J2405; J2543; J2704; J3010; J3370; J3475; J3480; J3490; J7030; J7060; J7608; J7626; P9041; Q9963; Q9967

== ENCOUNTER 2020-04-19 01:47 | Inpatient (IN) | payer MEDICARE, MEDICAID ==
[~2020-04-19] VITALS: Ht 167.6 cm; Wt 60.8 kg
[~2020-04-19 01:47] MED LIST changes: +AMI2 PO; +DILT240C91 MT; +FURO-151 MT; +GABA800T97 MT; +METO25TA6 MT
[2020-04-19] MEDS ORDERED: ACETAMINOPHEN 325MG TABLET PO STA (02:22)
[2020-04-19] MEDS ORDERED: CEFTRIAXONE 1 G PREMIX 50 ML IV ONE (02:30)
[2020-04-19] MEDS ORDERED: SODIUM CHLORIDE 0.9% 1,000 ML IV ONE (02:30)
[2020-04-19] MEDS ORDERED: AZITHROMYCIN 500 MG in DEXT 5% WATER 250 ML IV ONE (02:30)
[2020-04-19 02:37] LABS: BASOPHILS % 0.4 % (0.0-2.0); EOSINOPHILS % 0.5 % (0.0-5.0); HEMATOCRIT. 35.6 % (42.0-52.0); HEMOGLOBIN. 12.4 g/dL (14.0-18.0); LYMPHOCYTES % 29.4 % (20.0-50.0); MEAN CORPUSCULAR HEMOGLOBIN 30.8 pg (28.0-32.0); MEAN CORPUSCULAR VOLUME 88.4 fL (80.0-94.0); MEAN PLATELET VOLUME 8.9 fl (7.4-10.4); MONOCYTES % 10.1 % (2.0-8.0); NEUTROPHILS % 59.6 % (40.0-76.0); PLATELET 124 x1000/uL (130-400); RED BLOOD CELL COUNT 4.03 mill/uL (4.7-6.1); RED CELL DISTRIBUTION WIDTH 13.6 % (11.6-14.6)
[2020-04-19 02:42] LABS: CHLORIDE 97 mEq/L (98-107)
[2020-04-19 03:29] LABS: CLARITY URINE TURBID (CLEAR); COLOR URINE YELLOW (YELLOW); KETONES URINE NEGATIVE (NEGATIVE); LEUKOCYTE ESTERASE URINE 3+ (NEGATIVE); NITRITE URINE NEGATIVE (NEGATIVE); OCCULT BLOOD URINE 1+ (NEGATIVE); PH URINE 6.5 (4.5-8.0); PROTEIN URINE 1+ (NEGATIVE); SPECIFIC GRAVITY URINE 1.013 (1.005-1.030)
[2020-04-19 03:56] LABS: INR 1.2; PROTHROMBIN TIME 12.3 sec (9.6-11.0)
[2020-04-19] MEDS ORDERED: DEXTROSE 50% WATER 50ML SYRINGE IV PRN (09:30)
[2020-04-19] MEDS ORDERED: ONDANSETRON HCL 4MG/2ML INJ IV PRN (09:30)
[2020-04-19] MEDS: ENOXAPARIN 40MG/0.4ML SYR SUBCUT SCH (09:56)
[2020-04-19] MEDS: BLOOD SUGAR DIAGNOSTIC STRIP TEST SCH (14:42)
[2020-04-19] MEDS: INSULIN LISPRO 100 UNITS/ML SUBCUT SCH (14:42)
[2020-04-19] MEDS: BENZONATATE 100MG CAPSULE PO PRN (15:06)
[2020-04-19] MEDS: DEXAMETHASONE 4MG TABLET PO SCH (18:15)
[2020-04-19] MEDS ORDERED: INSULIN GLARGINE UD 100 UNITS/ML SYR SUBCUT SCH (22:00)
[2020-04-20] MEDS: INSULIN GLARGINE UD 100 UNITS/ML SYR SUBCUT SCH ×2 (02:30→10:00)
[2020-04-20] MEDS ORDERED: CEFTRIAXONE 1,000 MG in DEXTROSE 5% WATER 50 ML IV SCH (03:00)
[2020-04-20] MEDS: AZITHROMYCIN 250 MG TABLET PO SCH (10:25)
[2020-04-20] MEDS: DEXAMETHASONE 4MG TABLET PO SCH (10:25)
[2020-04-20] MEDS: ENOXAPARIN 40MG/0.4ML SYR SUBCUT SCH (10:26)
[2020-04-20] MEDS ORDERED: AZIT250T12 MT (15:10)
[2020-04-20] MEDS ORDERED: BENZ100C86 PO (15:10)
[2020-04-20] MEDS ORDERED: DEX4 PO (15:10)
[2020-04-20] MEDS: BLOOD SUGAR DIAGNOSTIC STRIP TEST SCH ×2 (16:55→21:49)
[2020-04-20] MEDS: INSULIN LISPRO 100 UNITS/ML SUBCUT SCH ×2 (17:01→21:57)
[2020-04-20] MEDS ORDERED: GLIP10TA10 MT (17:02)
[2020-04-20] MEDS ORDERED: CEPH-569 MT (17:03)
[2020-04-20] MEDS ORDERED: INSULIN LISPRO 100 UNITS/ML SUBCUT NR (17:30)
[2020-04-20 17:36] VITALS: BP 121/87
[2020-04-20 20:00] VITALS: BP 151/84
[2020-04-20] MEDS: METOPROLOL TARTRATE 25MG TABLET PO SCH (21:49)
[2020-04-21] VITALS: BP 134/66
[2020-04-21 04:00] VITALS: BP 117/61
[2020-04-21] MEDS: BLOOD SUGAR DIAGNOSTIC STRIP TEST SCH ×4 (06:15→20:40)
[2020-04-21] MEDS: DEXAMETHASONE 4MG TABLET PO SCH (08:54)
[2020-04-21] MEDS: AZITHROMYCIN 250 MG TABLET PO SCH (08:55)
[2020-04-21] MEDS: METOPROLOL TARTRATE 25MG TABLET PO SCH ×2 (08:55→20:31)
[2020-04-21] MEDS: ENOXAPARIN 40MG/0.4ML SYR SUBCUT SCH (08:56)
[2020-04-21] MEDS ORDERED: CEFTRIAXONE 1,000 MG in DEXTROSE 5% WATER 50 ML IV SCH (09:00)
[2020-04-21] MEDS: INSULIN LISPRO 100 UNITS/ML SUBCUT SCH ×4 (09:01→20:40)
[2020-04-21 13:51] VITALS: BP 136/78
[2020-04-21 20:00] VITALS: BP 124/72
[2020-04-21] MEDS ORDERED: INSULIN GLARGINE UD 100 UNITS/ML SYR SUBCUT NR (20:00)
[2020-04-22] VITALS: BP 113/63
[2020-04-22 04:00] VITALS: BP 129/72
[2020-04-22] MEDS: BLOOD SUGAR DIAGNOSTIC STRIP TEST SCH ×4 (06:08→20:21)
[2020-04-22] MEDS: INSULIN LISPRO 100 UNITS/ML SUBCUT SCH ×4 (07:01→21:55)
[2020-04-22 08:00] VITALS: BP 121/77
[2020-04-22] MEDS: METOPROLOL TARTRATE 25MG TABLET PO SCH ×2 (08:44→21:54)
[2020-04-22] MEDS: DEXAMETHASONE 4MG TABLET PO SCH (08:44)
[2020-04-22] MEDS: ENOXAPARIN 40MG/0.4ML SYR SUBCUT SCH (08:44)
[2020-04-22] MEDS ORDERED: INSULIN GLARGINE UD 100 UNITS/ML SYR SUBCUT SCH (10:00)
[2020-04-22 12:00] VITALS: BP 126/75
[2020-04-22 20:00] VITALS: BP 131/77
[2020-04-22] MEDS: INSULIN GLARGINE UD 100 UNITS/ML SYR SUBCUT SCH (21:55)
[2020-04-23] VITALS: BP 140/78
[2020-04-23 04:00] VITALS: BP 131/73
[2020-04-23] MEDS: ACETAMINOPHEN 325MG TABLET PO PRN (04:21)
[2020-04-23] MEDS: BLOOD SUGAR DIAGNOSTIC STRIP TEST SCH ×4 (06:40→21:00)
[2020-04-23] MEDS: INSULIN LISPRO 100 UNITS/ML SUBCUT SCH ×3 (07:03→16:54)
[2020-04-23 08:00] VITALS: BP 141/78
[2020-04-23] MEDS: ENOXAPARIN 40MG/0.4ML SYR SUBCUT SCH (10:23)
[2020-04-23] MEDS: METOPROLOL TARTRATE 25MG TABLET PO SCH (10:24)
[2020-04-23] MEDS: DEXAMETHASONE 4MG TABLET PO SCH (10:24)
[2020-04-23] MEDS: INSULIN GLARGINE UD 100 UNITS/ML SYR SUBCUT SCH (10:36)
[2020-04-23 12:00] VITALS: BP 129/72
[2020-04-23 16:00] VITALS: BP 125/75
[2020-04-23 20:36] VITALS: BP 124/72
[2020-04-24] MEDS: METOPROLOL TARTRATE 25MG TABLET PO SCH ×3 (00:26→22:08)
[2020-04-24] MEDS: INSULIN LISPRO 100 UNITS/ML SUBCUT SCH ×5 (00:27→22:10)
[2020-04-24] MEDS: INSULIN GLARGINE UD 100 UNITS/ML SYR SUBCUT SCH ×3 (00:28→22:11)
[2020-04-24 00:45] VITALS: BP 143/73
[2020-04-24 04:00] VITALS: BP 125/72
[2020-04-24] MEDS: BLOOD SUGAR DIAGNOSTIC STRIP TEST SCH ×4 (06:40→21:59)
[2020-04-24 08:00] VITALS: BP 120/70
[2020-04-24] MEDS: DEXAMETHASONE 4MG TABLET PO SCH (08:58)
[2020-04-24 12:00] VITALS: BP 131/75
[2020-04-24] MEDS: ENOXAPARIN 40MG/0.4ML SYR SUBCUT SCH (12:04)
[2020-04-24 16:00] VITALS: BP 145/81
[2020-04-24 20:00] VITALS: BP 136/78
[2020-04-24] MEDS: ACETAMINOPHEN 325MG TABLET PO PRN (22:09)
[2020-04-25] VITALS: BP 136/73
[2020-04-25 04:00] VITALS: BP 113/80
[2020-04-25] MEDS: BLOOD SUGAR DIAGNOSTIC STRIP TEST SCH ×4 (06:40→21:17)
[2020-04-25] MEDS: INSULIN LISPRO 100 UNITS/ML SUBCUT SCH ×4 (07:10→21:28)
[2020-04-25 08:00] VITALS: BP 132/72
[2020-04-25] MEDS: ENOXAPARIN 40MG/0.4ML SYR SUBCUT SCH (08:07)
[2020-04-25] MEDS: METOPROLOL TARTRATE 25MG TABLET PO SCH ×2 (08:08→21:26)
[2020-04-25] MEDS: DEXAMETHASONE 4MG TABLET PO SCH (08:15)
[2020-04-25] MEDS: INSULIN GLARGINE UD 100 UNITS/ML SYR SUBCUT SCH ×2 (10:51→21:28)
[2020-04-25 12:00] VITALS: BP 120/64
[2020-04-25 16:00] VITALS: BP 108/63
[2020-04-25 20:00] VITALS: BP 122/69
[2020-04-25] MEDS: ACETAMINOPHEN 325MG TABLET PO PRN (21:26)
[2020-04-26 04:00] VITALS: BP 130/67
[2020-04-26] MEDS: INSULIN LISPRO 100 UNITS/ML SUBCUT SCH ×4 (07:10→21:35)
[2020-04-26] MEDS: BLOOD SUGAR DIAGNOSTIC STRIP TEST SCH ×4 (07:12→21:33)
[2020-04-26 08:00] VITALS: BP 119/75
[2020-04-26] MEDS: DEXAMETHASONE 4MG TABLET PO SCH (08:33)
[2020-04-26] MEDS: METOPROLOL TARTRATE 25MG TABLET PO SCH ×2 (08:34→21:00)
[2020-04-26] MEDS: ENOXAPARIN 40MG/0.4ML SYR SUBCUT SCH (08:34)
[2020-04-26] MEDS: INSULIN GLARGINE UD 100 UNITS/ML SYR SUBCUT SCH ×2 (10:51→21:36)
[2020-04-26 12:00] VITALS: BP 105/57
[2020-04-26] MEDS ORDERED: LACTULOSE 20G/30ML UDC PO NR (15:45)
[2020-04-26 16:00] VITALS: BP 110/64
[2020-04-26 20:00] VITALS: BP 101/55
[2020-04-26] MEDS: ACETAMINOPHEN 325MG TABLET PO PRN (21:33)
[2020-04-27] VITALS: BP 101/56
[2020-04-27 04:00] VITALS: BP 108/69
[2020-04-27] MEDS: INSULIN LISPRO 100 UNITS/ML SUBCUT SCH ×4 (07:08→22:07)
[2020-04-27] MEDS: BLOOD SUGAR DIAGNOSTIC STRIP TEST SCH ×4 (07:08→21:12)
[2020-04-27 07:16] LABS: HEMATOCRIT. 37.3 % (42.0-52.0); HEMOGLOBIN. 12.8 g/dL (14.0-18.0); MEAN CORPUSCULAR HEMOGLOBIN 30.3 pg (28.0-32.0); MEAN CORPUSCULAR VOLUME 88.4 fL (80.0-94.0); MEAN PLATELET VOLUME 9.2 fl (7.4-10.4); PLATELET 268 x1000/uL (130-400); RED BLOOD CELL COUNT 4.22 mill/uL (4.7-6.1); RED CELL DISTRIBUTION WIDTH 13.4 % (11.6-14.6)
[2020-04-27 07:44] LABS: CHLORIDE 107 mEq/L (98-107)
[2020-04-27 08:00] VITALS: BP 127/76
[2020-04-27] MEDS: ENOXAPARIN 40MG/0.4ML SYR SUBCUT SCH (08:02)
[2020-04-27] MEDS: DOCUSATE SODIUM 250MG CAPSULE PO SCH (08:02)
[2020-04-27] MEDS: METOPROLOL TARTRATE 25MG TABLET PO SCH ×2 (08:02→22:06)
[2020-04-27] MEDS: DEXAMETHASONE 4MG TABLET PO SCH (08:02)
[2020-04-27] MEDS: INSULIN GLARGINE UD 100 UNITS/ML SYR SUBCUT SCH ×2 (09:31→22:06)
[2020-04-27 12:00] VITALS: BP 101/57
[2020-04-27 13:55] LABS: PLATELET ESTIMATE NORMAL
[2020-04-27 16:00] VITALS: BP 116/66
[2020-04-27 20:00] VITALS: BP 129/72
[2020-04-28] VITALS: BP 119/63
[2020-04-28 04:00] VITALS: BP 109/60
[2020-04-28] MEDS: BLOOD SUGAR DIAGNOSTIC STRIP TEST SCH ×4 (06:51→20:58)
[2020-04-28] MEDS: INSULIN LISPRO 100 UNITS/ML SUBCUT SCH ×5 (06:52→20:59)
[2020-04-28 08:00] VITALS: BP 114/64
[2020-04-28] MEDS: ACETAMINOPHEN 325MG TABLET PO PRN (08:15)
[2020-04-28] MEDS: ENOXAPARIN 40MG/0.4ML SYR SUBCUT SCH (08:15)
[2020-04-28] MEDS: METOPROLOL TARTRATE 25MG TABLET PO SCH ×2 (08:15→20:58)
[2020-04-28] MEDS: DOCUSATE SODIUM 250MG CAPSULE PO SCH (08:15)
[2020-04-28] MEDS: INSULIN GLARGINE UD 100 UNITS/ML SYR SUBCUT SCH ×2 (11:22→22:00)
[2020-04-28 12:00] VITALS: BP 96/53
[2020-04-28 16:00] VITALS: BP 96/55
[2020-04-28 20:00] VITALS: BP 93/49
[2020-04-29] VITALS (9 sets, daily range): BP systolic 80–119; BP diastolic 35–64
[2020-04-29] MEDS: ACETAMINOPHEN 325MG TABLET PO PRN (02:52)
[2020-04-29] MEDS ORDERED: NON FORMULARY PATIENT HOME MED XX SCH (05:30)
[2020-04-29] MEDS ORDERED: SODIUM CHLORIDE 0.9% 500 ML IV NR (05:30)
[2020-04-29] MEDS: INSULIN LISPRO 100 UNITS/ML SUBCUT SCH ×4 (06:44→21:00)
[2020-04-29] MEDS: BLOOD SUGAR DIAGNOSTIC STRIP TEST SCH ×4 (06:44→20:39)
[2020-04-29] MEDS: DOCUSATE SODIUM 250MG CAPSULE PO SCH (08:46)
[2020-04-29] MEDS: ENOXAPARIN 40MG/0.4ML SYR SUBCUT SCH (08:47)
[2020-04-29] MEDS: METOPROLOL TARTRATE 25MG TABLET PO SCH (08:54)
[2020-04-30] VITALS: BP 128/67
[2020-04-30 04:00] VITALS: BP 99/62
[2020-04-30] MEDS: BLOOD SUGAR DIAGNOSTIC STRIP TEST SCH ×4 (06:33→21:00)
[2020-04-30] MEDS: INSULIN LISPRO 100 UNITS/ML SUBCUT SCH ×4 (07:10→23:04)
[2020-04-30 07:16] LABS: HEMATOCRIT. 37.7 % (42.0-52.0); HEMOGLOBIN. 12.8 g/dL (14.0-18.0); MEAN CORPUSCULAR HEMOGLOBIN 31.1 pg (28.0-32.0); MEAN CORPUSCULAR VOLUME 91.1 fL (80.0-94.0); PLATELET 232 x1000/uL (130-400); RED BLOOD CELL COUNT 4.13 mill/uL (4.7-6.1); RED CELL DISTRIBUTION WIDTH 14.4 % (11.6-14.6)
[2020-04-30 07:45] LABS: CHLORIDE 111 mEq/L (98-107)
[2020-04-30 08:00] VITALS: BP 128/64
[2020-04-30] MEDS: DOCUSATE SODIUM 250MG CAPSULE PO SCH (08:28)
[2020-04-30] MEDS: ENOXAPARIN 40MG/0.4ML SYR SUBCUT SCH (08:29)
[2020-04-30] MEDS: METOPROLOL TARTRATE 25MG TABLET PO SCH (08:32)
[2020-04-30 12:00] VITALS: BP 115/69
[2020-04-30 13:24] LABS: PLATELET ESTIMATE NORMAL
[2020-04-30 16:00] VITALS: BP 112/71
[2020-04-30 20:00] VITALS: BP 106/63
[2020-05-01] VITALS: BP 132/75
[2020-05-01 04:00] VITALS: BP 142/81
[2020-05-01] MEDS: ACETAMINOPHEN 325MG TABLET PO PRN ×2 (04:24→13:44)
[2020-05-01] MEDS: BLOOD SUGAR DIAGNOSTIC STRIP TEST SCH ×4 (06:40→21:00)
[2020-05-01] MEDS: INSULIN LISPRO 100 UNITS/ML SUBCUT SCH ×3 (07:10→17:11)
[2020-05-01 07:49] LABS: BASOPHILS % 0.4 % (0.0-2.0); EOSINOPHILS % 1.4 % (0.0-5.0); HEMATOCRIT. 38.9 % (42.0-52.0); HEMOGLOBIN. 13.2 g/dL (14.0-18.0); LYMPHOCYTES % 23.2 % (20.0-50.0); MEAN CORPUSCULAR HEMOGLOBIN 30.8 pg (28.0-32.0); MEAN PLATELET VOLUME 8.6 fl (7.4-10.4); MONOCYTES % 10.2 % (2.0-8.0); NEUTROPHILS % 64.8 % (40.0-76.0); PLATELET 222 x1000/uL (130-400); RED BLOOD CELL COUNT 4.27 mill/uL (4.7-6.1); RED CELL DISTRIBUTION WIDTH 14.2 % (11.6-14.6)
[2020-05-01 08:00] VITALS: BP 139/70
[2020-05-01 08:24] LABS: CHLORIDE 107 mEq/L (98-107)
[2020-05-01] MEDS: DOCUSATE SODIUM 250MG CAPSULE PO SCH (09:48)
[2020-05-01] MEDS: METOPROLOL TARTRATE 25MG TABLET PO SCH (09:48)
[2020-05-01 12:00] VITALS: BP 98/62
[2020-05-01] MEDS: ENOXAPARIN 40MG/0.4ML SYR SUBCUT SCH (12:20)
[2020-05-01] MEDS: TAMSULOSIN HCL 0.4MG SR CAPSULE PO SCH (13:44)
[2020-05-01 16:00] VITALS: BP 91/45
[2020-05-01 17:22] LABS: CLARITY URINE CLOUDY (CLEAR); COLOR URINE YELLOW (YELLOW); KETONES URINE NEGATIVE (NEGATIVE); LEUKOCYTE ESTERASE URINE 3+ (NEGATIVE); NITRITE URINE NEGATIVE (NEGATIVE); OCCULT BLOOD URINE 1+ (NEGATIVE); PH URINE 7.5 (4.5-8.0); PROTEIN URINE NEGATIVE (NEGATIVE); SPECIFIC GRAVITY URINE 1.012 (1.005-1.030); UROBILINOGEN URINE 0.2 E.U./dL (0.2-1.0)
[2020-05-01 20:00] VITALS: BP 117/70
[2020-05-02] VITALS: BP 130/64
[2020-05-02] MEDS: INSULIN LISPRO 100 UNITS/ML SUBCUT SCH ×5 (00:07→23:28)
[2020-05-02] MEDS: BENZONATATE 100MG CAPSULE PO PRN (01:17)
[2020-05-02] MEDS: ACETAMINOPHEN 650MG/20.3ML UDC PO PRN ×2 (01:17→23:27)
[2020-05-02] MEDS: NITROFURANTOIN 100MG M/M CAPSULE PO SCH ×2 (01:18→23:29)
[2020-05-02 04:00] VITALS: BP 116/65
[2020-05-02] MEDS: BLOOD SUGAR DIAGNOSTIC STRIP TEST SCH ×4 (06:53→21:00)
[2020-05-02 08:00] VITALS: BP 140/70
[2020-05-02] MEDS: PHENAZOPYRIDINE HCL 100MG TABLET PO SCH ×3 (09:31→18:03)
[2020-05-02] MEDS: DOCUSATE SODIUM 250MG CAPSULE PO SCH (09:31)
[2020-05-02] MEDS: METOPROLOL TARTRATE 25MG TABLET PO SCH (09:31)
[2020-05-02] MEDS: TAMSULOSIN HCL 0.4MG SR CAPSULE PO SCH (09:31)
[2020-05-02] MEDS: ENOXAPARIN 40MG/0.4ML SYR SUBCUT SCH (09:32)
[2020-05-02 12:00] VITALS: BP 131/71
[2020-05-02 16:00] VITALS: BP 139/73
[2020-05-02 20:00] VITALS: BP 129/70
[2020-05-03 00:42] VITALS: BP 115/62
[2020-05-03] MEDS: BLOOD SUGAR DIAGNOSTIC STRIP TEST SCH ×4 (06:48→20:48)
[2020-05-03] MEDS: INSULIN LISPRO 100 UNITS/ML SUBCUT SCH ×4 (07:10→20:50)
[2020-05-03 08:00] VITALS: BP 122/66
[2020-05-03] MEDS: DOCUSATE SODIUM 250MG CAPSULE PO SCH (08:49)
[2020-05-03] MEDS: NITROFURANTOIN 100MG M/M CAPSULE PO SCH ×2 (08:49→20:54)
[2020-05-03] MEDS: ENOXAPARIN 40MG/0.4ML SYR SUBCUT SCH (08:50)
[2020-05-03] MEDS: METOPROLOL TARTRATE 25MG TABLET PO SCH (08:50)
[2020-05-03] MEDS: TAMSULOSIN HCL 0.4MG SR CAPSULE PO SCH (08:50)
[2020-05-03] MEDS: PHENAZOPYRIDINE HCL 100MG TABLET PO SCH ×3 (08:50→18:01)
[2020-05-03 12:00] VITALS: BP 100/47
[2020-05-03 16:00] VITALS: BP 129/76
[2020-05-03 20:00] VITALS: BP 141/77
[2020-05-04] VITALS: BP 132/72
[2020-05-04] MEDS: ACETAMINOPHEN 650MG/20.3ML UDC PO PRN ×3 (01:29→17:37)
[2020-05-04 04:00] VITALS: BP 145/77
[2020-05-04] MEDS: BLOOD SUGAR DIAGNOSTIC STRIP TEST SCH ×4 (07:13→20:57)
[2020-05-04 08:00] VITALS: BP 170/99
[2020-05-04] MEDS: NITROFURANTOIN 100MG M/M CAPSULE PO SCH ×2 (08:14→20:57)
[2020-05-04] MEDS: ENOXAPARIN 40MG/0.4ML SYR SUBCUT SCH (08:14)
[2020-05-04] MEDS: DOCUSATE SODIUM 250MG CAPSULE PO SCH (08:15)
[2020-05-04] MEDS: TAMSULOSIN HCL 0.4MG SR CAPSULE PO SCH (08:15)
[2020-05-04] MEDS: METOPROLOL TARTRATE 25MG TABLET PO SCH (08:16)
[2020-05-04] MEDS: INSULIN LISPRO 100 UNITS/ML SUBCUT SCH ×4 (08:18→20:57)
[2020-05-04 12:00] VITALS: BP 124/61
[2020-05-04 16:00] VITALS: BP 123/66
[2020-05-04 20:00] VITALS: BP 134/71
[2020-05-04] MEDS: INSULIN GLARGINE UD 100 UNITS/ML SYR SUBCUT SCH (21:16)
[2020-05-05] VITALS (7 sets, daily range): BP systolic 105–175; BP diastolic 47–77
[2020-05-05] MEDS ORDERED: CLONIDINE 0.1MG TABLET PO PRN (00:30)
[2020-05-05] MEDS: ACETAMINOPHEN 650MG/20.3ML UDC PO PRN ×3 (01:52→18:00)
[2020-05-05] MEDS: BLOOD SUGAR DIAGNOSTIC STRIP TEST SCH ×4 (06:11→22:27)
[2020-05-05] MEDS: INSULIN LISPRO 100 UNITS/ML SUBCUT SCH ×4 (10:39→22:26)
[2020-05-05] MEDS: DOCUSATE SODIUM 250MG CAPSULE PO SCH (10:40)
[2020-05-05] MEDS: ENOXAPARIN 40MG/0.4ML SYR SUBCUT SCH (10:40)
[2020-05-05] MEDS: NITROFURANTOIN 100MG M/M CAPSULE PO SCH ×2 (10:41→22:25)
[2020-05-05] MEDS: METOPROLOL TARTRATE 25MG TABLET PO SCH (10:41)
[2020-05-05] MEDS: INSULIN GLARGINE UD 100 UNITS/ML SYR SUBCUT SCH ×2 (10:42→22:27)
[2020-05-05] MEDS: TAMSULOSIN HCL 0.4MG SR CAPSULE PO SCH (10:44)
[2020-05-06] VITALS: BP 112/52
[2020-05-06] MEDS: ACETAMINOPHEN 650MG/20.3ML UDC PO PRN ×2 (01:07→14:16)
[2020-05-06 04:00] VITALS: BP 124/72
[2020-05-06] MEDS: INSULIN LISPRO 100 UNITS/ML SUBCUT SCH ×4 (06:31→21:00)
[2020-05-06] MEDS: BLOOD SUGAR DIAGNOSTIC STRIP TEST SCH ×4 (06:31→21:00)
[2020-05-06] MEDS: TAMSULOSIN HCL 0.4MG SR CAPSULE PO SCH (09:08)
[2020-05-06] MEDS: METOPROLOL TARTRATE 25MG TABLET PO SCH (09:09)
[2020-05-06] MEDS: NITROFURANTOIN 100MG M/M CAPSULE PO SCH ×2 (09:09→22:12)
[2020-05-06] MEDS: DOCUSATE SODIUM 250MG CAPSULE PO SCH (09:09)
[2020-05-06] MEDS: ENOXAPARIN 40MG/0.4ML SYR SUBCUT SCH (09:10)
[2020-05-06 11:15] VITALS: BP 136/77
[2020-05-06] MEDS: INSULIN GLARGINE UD 100 UNITS/ML SYR SUBCUT SCH ×2 (11:55→22:00)
[2020-05-06 16:00] VITALS: BP 123/62
[2020-05-06 20:00] VITALS: BP 103/60
[2020-05-07] VITALS: BP 134/81
[2020-05-07] MEDS: ACETAMINOPHEN 650MG/20.3ML UDC PO PRN ×3 (02:05→23:03)
[2020-05-07 04:00] VITALS: BP 108/64
[2020-05-07] MEDS: BLOOD SUGAR DIAGNOSTIC STRIP TEST SCH ×4 (07:30→20:37)
[2020-05-07] MEDS: INSULIN LISPRO 100 UNITS/ML SUBCUT SCH ×4 (08:39→20:49)
[2020-05-07] MEDS: DOCUSATE SODIUM 250MG CAPSULE PO SCH (08:40)
[2020-05-07] MEDS: ENOXAPARIN 40MG/0.4ML SYR SUBCUT SCH (08:40)
[2020-05-07] MEDS: TAMSULOSIN HCL 0.4MG SR CAPSULE PO SCH (08:41)
[2020-05-07] MEDS: METOPROLOL TARTRATE 25MG TABLET PO SCH (08:41)
[2020-05-07 08:49] VITALS: BP 153/86
[2020-05-07] MEDS: INSULIN GLARGINE UD 100 UNITS/ML SYR SUBCUT SCH ×2 (10:07→23:03)
[2020-05-07 12:20] VITALS: BP 108/61
[2020-05-07] MEDS: FINASTERIDE 5MG TABLET PO SCH (13:40)
[2020-05-07 16:24] VITALS: BP 128/65
[2020-05-07 17:56] LABS: CLARITY URINE CLOUDY (CLEAR); COLOR URINE YELLOW (YELLOW); KETONES URINE NEGATIVE (NEGATIVE); LEUKOCYTE ESTERASE URINE 3+ (NEGATIVE); NITRITE URINE NEGATIVE (NEGATIVE); OCCULT BLOOD URINE TRACE (NEGATIVE); PROTEIN URINE TRACE (NEGATIVE); SPECIFIC GRAVITY URINE 1.013 (1.005-1.030); UROBILINOGEN URINE 0.2 E.U./dL (0.2-1.0)
[2020-05-07 20:00] VITALS: BP 132/72
[2020-05-08] VITALS: BP 173/89
[2020-05-08 04:00] VITALS: BP 122/65
[2020-05-08] MEDS: BLOOD SUGAR DIAGNOSTIC STRIP TEST SCH ×4 (07:20→20:25)
[2020-05-08] MEDS: INSULIN LISPRO 100 UNITS/ML SUBCUT SCH ×4 (07:50→22:36)
[2020-05-08] MEDS: DOCUSATE SODIUM 250MG CAPSULE PO SCH (09:45)
[2020-05-08] MEDS: TAMSULOSIN HCL 0.4MG SR CAPSULE PO SCH (09:45)
[2020-05-08] MEDS: FINASTERIDE 5MG TABLET PO SCH (09:46)
[2020-05-08] MEDS: METOPROLOL TARTRATE 25MG TABLET PO SCH (09:46)
[2020-05-08] MEDS: ACETAMINOPHEN 650MG/20.3ML UDC PO PRN (09:47)
[2020-05-08] MEDS: ENOXAPARIN 40MG/0.4ML SYR SUBCUT SCH (09:47)
[2020-05-08] MEDS: INSULIN GLARGINE UD 100 UNITS/ML SYR SUBCUT SCH ×2 (11:02→22:37)
[2020-05-08 20:00] VITALS: BP 131/71
[2020-05-08] MEDS: CEFTRIAXONE 1,000 MG in DEXTROSE 5% WATER 50 ML IV SCH (20:25)
[2020-05-09] VITALS: BP 95/53
[2020-05-09 04:00] VITALS: BP 113/58
[2020-05-09] MEDS: ACETAMINOPHEN 650MG/20.3ML UDC PO PRN (04:20)
[2020-05-09] MEDS: BLOOD SUGAR DIAGNOSTIC STRIP TEST SCH ×4 (06:40→20:09)
[2020-05-09] MEDS: INSULIN LISPRO 100 UNITS/ML SUBCUT SCH ×4 (07:50→20:59)
[2020-05-09] MEDS: DOCUSATE SODIUM 250MG CAPSULE PO SCH (09:38)
[2020-05-09] MEDS: FINASTERIDE 5MG TABLET PO SCH (09:39)
[2020-05-09] MEDS: ENOXAPARIN 40MG/0.4ML SYR SUBCUT SCH (09:39)
[2020-05-09] MEDS: TAMSULOSIN HCL 0.4MG SR CAPSULE PO SCH (09:40)
[2020-05-09] MEDS: METOPROLOL TARTRATE 25MG TABLET PO SCH (09:40)
[2020-05-09] MEDS: INSULIN GLARGINE UD 100 UNITS/ML SYR SUBCUT SCH ×2 (09:49→23:06)
[2020-05-09 12:00] VITALS: BP 142/80
[2020-05-09 20:00] VITALS: BP 132/64
[2020-05-09] MEDS: CEFTRIAXONE 1,000 MG in DEXTROSE 5% WATER 50 ML IV SCH (20:01)
[2020-05-10] VITALS: BP 97/48
[2020-05-10 04:00] VITALS: BP 114/66
[2020-05-10 07:17] LABS: HEMOGLOBIN 11.1 g/dL (14.0-18.0); MEAN CORPUSCULAR HEMOGLOBIN 31.1 pg (28.0-32.0); MEAN CORPUSCULAR VOLUME 89.9 fL (80.0-94.0); PLATELET 147 x1000/uL (130-400); RED BLOOD CELL COUNT 3.56 mill/uL (4.7-6.1); RED CELL DISTRIBUTION WIDTH 15.3 % (11.6-14.6)
[2020-05-10] MEDS: BLOOD SUGAR DIAGNOSTIC STRIP TEST SCH (07:20)
[2020-05-10 07:29] LABS: CHLORIDE 108 mEq/L (98-107)
[2020-05-10] MEDS: INSULIN LISPRO 100 UNITS/ML SUBCUT SCH (07:50)
[2020-05-10 08:00] VITALS: BP 125/68
[2020-05-10] MEDS: DOCUSATE SODIUM 250MG CAPSULE PO SCH (09:07)
[2020-05-10] MEDS: METOPROLOL TARTRATE 25MG TABLET PO SCH (09:08)
[2020-05-10] MEDS: TAMSULOSIN HCL 0.4MG SR CAPSULE PO SCH (09:08)
[2020-05-10] MEDS: FINASTERIDE 5MG TABLET PO SCH (09:08)
[2020-05-10] MEDS: ENOXAPARIN 40MG/0.4ML SYR SUBCUT SCH (09:08)
[2020-05-10] MEDS: INSULIN GLARGINE UD 100 UNITS/ML SYR SUBCUT SCH (10:46)
[2020-05-10 11:20] VITALS: BP 121/70
== END 2020-05-10 11:40 | DRG 871 ==
LOC: ER 01:47 → MICUSO 05:41 → 7EST 04-20 13:46 → 6WST 05-06 15:49 → 6EST 05-07 22:49
PROVIDERS: ADMIT Internal Medicine; ATTEND Internal Medicine
DX: A41.89 Other specified sepsis (principal); U07.1 COVID-19; J12.89 Other viral pneumonia; R65.21 Severe sepsis with septic shock; J96.01 Acute respiratory failure with hypoxia; E44.1 Mild protein-calorie malnutrition; E87.1 Hypo-osmolality and hyponatremia; E87.2 Acidosis; N39.0 Urinary tract infection, site not specified; J44.0 Chronic obstructive pulmonary disease with (acute) lower respiratory infection; I50.30 Unspecified diastolic (congestive) heart failure; B97.89 Other viral agents as the cause of diseases classified elsewhere; D64.9 Anemia, unspecified; E78.5 Hyperlipidemia, unspecified; E87.8 Other disorders of electrolyte and fluid balance, not elsewhere classified; I48.0 Paroxysmal atrial fibrillation; N40.0 Benign prostatic hyperplasia without lower urinary tract symptoms; I11.0 Hypertensive heart disease with heart failure; T38.0X5A Adverse effect of glucocorticoids and synthetic analogues, initial encounter; G90.8 Other disorders of autonomic nervous system; E11.42 Type 2 diabetes mellitus with diabetic polyneuropathy; Z68.21 Body mass index [BMI] 21.0-21.9, adult; Z90.49 Acquired absence of other specified parts of digestive tract; Z79.2 Long term (current) use of antibiotics; Z79.899 Other long term (current) drug therapy
CPT/HCPCS: 36415; 71045; 80048; 80053; 81003; 82728; 82962; 83605; 84145; 84484; 85025; 85027; 85651; 86140; 87426; 87635; 93005; 99291; C1893; J0456; J0696; J1650; J1815; J7030; J7040; J7060; J8540; A4315